=== PATIENT | male | born 1945 | race Caucasian/White ===

== ENCOUNTER 2021-08-21 11:57 | Observation (INO) | payer MEDICARE, SELFPAY ==
--- NOTE | ~2021-08-21 | XR_ITS ---
EXAM: XR abdomen/kub 1V DATE: 08/21/2021 16:28 HISTORY: left UVJ stone. nausea,vomiting, LLQ pain. hx hernia repair . COMPARISON: CT abdomen pelvis, same date. FINDINGS: Clear lung bases. Normal bowel gas pattern. No organomegaly. Moderate-severe left hydronep hrosis, with delayed contrast excretion. 6 x 10 mm left UVJ stone. Multiple pelvic phleboliths. Bilat eral hernia repair. Degenerative change in lumbar spine. IMPRESSION: Left UVJ stone causing moderate-severe obstructive uropathy. Reviewed, dictated and finalized at location K.
--- NOTE | ~2021-08-21 | CT_ITS ---
EXAMINATION: CT abdomen pelvis w con DATE: 08/21/2021 14:28 INDICATION: abd pain TECHNIQUE: Computed tomography (CT) of the abdomen and pelvis was performed with 100 mL Omnipaque-300 intravenous contrast. Automated exposure control and iterative reconstruction technique were employe d. The dose-length product was 579.90 mGy-cm. COMPARISON: None. FINDINGS: Lower thorax: Bibasilar atelectasis/scar and senescent change. Coronary artery calcification. Liver: Normal. Biliary/Gallbladder: Gallbladder is absent. No bile duct dilation. Pancreas: No mass or duct dilation. Spleen: Normal. Adrenals:No mass. Kidneys: Delayed left nephrogram. Moderate-severe left hydronephrosis and perinephric stranding. The right kidney is normal. GI tract: No small or large bowel dilation. Appendix not visualized. Diverticulosis without diverticu litis. Mesentery/Peritoneum: No ascites, mass, or free air. Retroperitoneum: No mass. Atherosclerotic abdominal aortic and/or arterial calcifications. Pelvis: Bladder wall thickening likely secondary to outlet obstruction from marked prostatomegaly. Sm all ureterocele. 9 x 12 mm stone lodged in the left UVJ. Soft Tissues: Prior bilateral hernia repair. Small bilateral fat-containing inguinal hernias. Bones: No acute osseous finding. IMPRESSION: 9 x 12 mm left UVJ stone causing moderate-severe left obstructive uropathy. Reviewed, dictated and finalized at location K.
--- NOTE | ~2021-08-21 | XR_ITS ---
EXAMINATION: XR fluoroscopy no charge DATE: 08/22/2021 13:00 CDT INDICATION: LEFT SIDE RETRO WITH STENT . TECHNIQUE: 4 fluoroscopic images of the abdomen and pelvis were obtained during retrograde pyelograph y with stent placement performed by the surgeon. I was not present in the operating room. Fluoroscopy exposure time was 73 seconds. Cumulative dose was 0.755 mGy2. COMPARISON: X-ray and CT abdomen and pelvis, 08/21/2021. FINDINGS: Redemonstration of the obstructing left UVJ stone. Cannulation of the bladder with attempts to advanc e a guidewire into the ureter. No pyelographic or post stent images were obtained. IMPRESSION: Fluoroscopic documentation of left-sided retrograde pyelography with stent placement. Please refer to the operative note for complete procedural details . Reviewed, dictated and finalized at location K. IMPRESSION: Fluoroscopic documentation of left-sided retrograde pyelography with stent plac emada. Please refer to the operative note for complete procedural details .
[2021-08-21 11:58] VITALS: BP 139/87; PULSE 101; RESP 18; TEMP 36.4; O2SAT 99
[2021-08-21 12:09] LABS: Basophils Percent Auto 0.3 % (0.2-1.2); Eosinophils Absolute Auto 0.1 K/mm3 (0-0.3); Eosinophils Percent Auto 1.1 % (0-4.4); Hematocrit 46.1 % (42.0-52.0); Hemoglobin 15.4 g/dL (14.0-18.0); Immature Granulocyte Absolute 0.05 K/mm3 (0.00-0.031); Immature Granulocyte Percent A 0.5 % (0-0.5); Lymphocytes Absolute Auto 0.88 K/mm3 (0.9-3.2); Lymphocytes Percent Auto 8.6 % (18.3-44.2); Mean Corpuscular HGB Conc 33.4 g/dl (32-36); Mean Corpuscular Hemoglobin 32.2 pg (26-34); Mean Corpuscular Volume 96.4 fl (80-100); Mean Platelet Volume 10.2 fl (7.4-10.4); Monocytes Percent Auto 9.4 % (2.6-8.5); Neutrophils Absolute Auto 8.2 K/mm3 (1.3-6.7); Neutrophils Percent Auto 80.1 % (45.5-73.1); Platelet Count Result 171 k/mm3 (150-375); Red Blood Count 4.78 M/mm3 (4.6-6.20); Red Cell Distribution Width 13.3 % (11.5-14.5); White Blood Count 10.2 K/mm3 (4.5-10.0)
[2021-08-21 12:23] LABS: Alanine Aminotransferase 15 U/L (6-50); Albumin Level 4.3 g/dL (3.5-5.1); Alkaline Phosphatase 57 U/L (38-126); Anion Gap 6 mmol/L (8-16); Aspartate Amino Transferase 21 U/L (17-59); Bilirubin,Total 3.5 mg/dL (0.2-1.3); Blood Urea Nitrogen 24 mg/dL (9-20); Calcium 8.9 mg/dL (8.4-10.2); Carbon Dioxide 26 mmol/L (22-30); Chloride 99 mmol/L (98-107); Estimated CRCL calculation 37 ml/min; Estimated Glomerular Filt Rate 46; Glucose 101 mg/dL (65-110); Lipase 46 U/L (23-300); Potassium 4.2 mmol/L (3.4-5.0); Sodium 131 mmol/L (137-145)
[2021-08-21 12:41] LABS: Appearance Urine Clear (Clear); Bilirubin Urine 1+ (Negative); Blood Urine Negative (Negative); Glucose Urine UA Negative (Negative); Ketones Urine 2+ mg/dL (Negative); Leukocyte Esterase Ur Negative LEU/UL (Negative); Nitrate Urine Negative (Negative); Protein Urine 1+ mg/dL (Negative); Specific Grav Ur 1.025 (1.001-1.035); pH Urine 6.5 (5.0-9.0)
[2021-08-21 12:53] LABS: Add Urine Microscopic? YES; Color Urine Dark Yellow (Yellow)
[2021-08-21 13:13] LABS: Mucus Urine Rare /lpf; RBC Urine 0-2 /hpf (0-2); Squamous Epithelial Cell Urine Rare /hpf (Few); WBC Urine 0-3 /hpf
[2021-08-21 13:28] VITALS: BP 150/98; PULSE 94; RESP 18; O2SAT 100
[2021-08-21] MEDS: SODIUM CHLORIDE 0.9% IV 1,000 ML 999 ML IV CONT (13:54)
[2021-08-21] MEDS: ONDANSETRON INJ 4 MG/2 ML VIAL IV PUSH (13:55)
--- NOTE | 2021-08-21 15:02 | ED.ABDPAIN ---
HPI - Abdominal Pain General Chief Complaint: Abdominal Pain <BETI Sanders Last Filed: 08/21/21 16:32> Stated Complaint: LLQ PAIN <BETI Sanders Last Filed: 08/21/21 16:32> Time Seen by Provider: 08/21/21 13:35 <BETI Sanders Last Filed: 08/21/21 16:32> Source: patient <BETI Sanders Last Filed: 08/21/21 16:32> Mode of arrival: ambulatory <BETI Sanders Last Filed: 08/21/21 16:32> Limitations: no limitations <BETI Sanders Last Filed: 08/21/21 16:32> History of Present Illness HPI narrative: This is a 76-year-old male that presents emergency department for left lower quadrant abdominal pain. Ongoing over the last couple of days. Associated with nausea and vomiting. Denies fever, dysuria, hematuria. <BETI Sanders Last Filed: 08/21/21 16:32> Related Data Home Medications: Home Medications Medication Instructions Recorded Confirmed cholecalciferol (vitamin D3) 50 50 mcg PO DAILY 07/18/21 07/18/21 mcg (2,000 unit) tablet meloxicam 7.5 mg tablet 7.5 mg PO DAILY 07/18/21 07/18/21 omeprazole 20 mg capsule,delayed 20 mg PO DAILY 07/18/21 07/18/21 release prednisone 10 mg tablet 10 mg PO DAILY PRN 07/18/21 07/18/21 tramadol 50 mg tablet 50 mg PO Q6H PRN 07/18/21 07/18/21 <BETI Sanders Last Filed: 08/21/21 16:32> Allergies/Adverse Reactions: Allergies Allergy/AdvReac Type Severity Reaction Status Date / Time Penicillins Allergy Mild Rash Verified 08/21/21 13:33 Hnokssk-FAS-VnT Reductase AdvReac Severe Muscle Pain Verified 08/21/21 13:33 Inhibitor hydroxychloroquine AdvReac Mild Diarrhea Verified 08/21/21 13:33 <BETI Sanders Last Filed: 08/21/21 16:32> Review of Systems Review of Systems: CONSTITUTIONAL: Denies fever GASTROINTESTINAL: Reports abdominal pain, nausea, vomiting GENITOURINARY: Denies dysuria or hematuria. <Ondina Johnston PA-C - Last Filed: 08/21/21 16:32> All systems reviewed & are unremarkable except as noted in HPI and below <Ondina Johnston PA-C - Last Filed: 08/21/21 16:32> PMFSH Past Medical History Medical History: Medical History (Updated 08/21/21 @ 16:32 by Ondina Johnston PA-C) Abdominal hernia Arthritis Elevated PSA Osteopenia <Ondina Johnston PA-C - Last Filed: 08/21/21 16:32> Surgical History Surgical History: Surgical History History of cholecystectomy History of hand surgery History of hernia repair <Ondina Johnston PA-C - Last Filed: 08/21/21 16:32> Family History Family History: Family History Other Diabetes mellitus Hypertension <Ondina Johnston PA-C - Last Filed: 08/21/21 16:32> Social History Social History: Social History Smoking status: Never smoker Alcohol intake: never <Ondina Johnston PA-C - Last Filed: 08/21/21 16:32> Exam Narrative: GENERAL: Well-appearing, well-nourished, and in no acute distress. HEAD: Normocephalic, atraumatic. EYES: EOMI. CHEST: Clear to auscultation. No respiratory distress. No wheezes rales or rhonchi HEART: Regular rate and rhythm. No murmur heard. Normal peripheral pulses. ABDOMEN: Soft, nondistended, normal active bowel sounds. Tender to palpation in the left lower quadrant, without guarding. No CVA tenderness EXTREMITIES: Normal range of motion. No edema. SKIN: Warm, dry, no rash. NEURO: No focal deficits. Alert and oriented x3. PSYCH: Normal mood and affect <Ondina Johnston PA-C - Last Filed: 08/21/21 16:32> Course FOOD TRUCK CATERER/PA Physician Supervision For this patient encounter, I reviewed the FOOD TRUCK CATERER or PA documentation, treatment plan, and medical decision making; and I had [id number] time with this patient. <Maria Esther Galeas MD - Last Filed: 08/21/21 16:27> Consult
[2021-08-21] MEDS: MORPHINE SULFATE (*CRX) 4 MG/ML INJ IV PUSH (15:19)
[2021-08-21 15:30] VITALS: BP 153/91; PULSE 90; RESP 18; O2SAT 100
[2021-08-21 17:34] VITALS: BP 112/78; PULSE 90; RESP 18; O2SAT 99
--- NOTE | 2021-08-21 17:56 | PM.IMHP ---
H&P: HPI History of Present Illness Date/Time: 08/21/21 17:20 Chief Complaint: Abdominal pain Narrative: this pleasant 76-year-old male patient Significant past medical history of abdominal hernia, arthritis, elevated PSA and osteopenia presents to the emergency room today with complaints of having left lower quadrant abdominal pain for the past 2 days. He reports that it has worsened, is not radiating but he does report nausea and vomiting with it. He denies any urinary complaints such as burning, urgency, hematuria or frequency. workup was started in the emergency room and was significant for CT of the abdomen pelvis showing a 9 mm x 12 mm urinary stone at the left UVJ causing moderate to severe left obstructive uropathy. Creatinine is also noted to be 1.5, and there is nothing to compare that to from previous studies. Bilirubin is 3.5, the patient is asymptomatic of any right upper quadrant pain. Urology has been notified and he is agreeable to consulting on patient and performing ureteroscopy tomorrow. At the time of my exam he has no complaints and states the Dilaudid is helping his pain. No N/V/D, he wants to eat. He has no CP, or dyspnea nor has he ever with this presentation. He is being admitted to hospitalist service at this time for medical management of pain overnight pending scope tomorrow. Review of Systems Review of Systems: All systems reviewed & are unremarkable except as noted in HPI and below PMFSH Past Medical History Medical History Abdominal hernia Arthritis Elevated PSA Osteopenia Surgical History Surgical History History of cholecystectomy History of hand surgery History of hernia repair Family History Family History Other Diabetes mellitus Hypertension Social History Social History Smoking status: Never smoker Alcohol intake: never Meds Home Medications and Allergies Home Medications Medication Instructions Recorded Confirmed Type cholecalciferol (vitamin D3) 50 50 mcg PO DAILY 07/18/21 07/18/21 History mcg (2,000 unit) tablet meloxicam 7.5 mg tablet 7.5 mg PO DAILY 07/18/21 07/18/21 History omeprazole 20 mg capsule,delayed 20 mg PO DAILY 07/18/21 07/18/21 History release prednisone 10 mg tablet 10 mg PO DAILY PRN 07/18/21 07/18/21 History tramadol 50 mg tablet 50 mg PO Q6H PRN 07/18/21 07/18/21 History Allergies Allergy/AdvReac Type Severity Reaction Status Date / Time Penicillins Allergy Mild Rash Verified 08/21/21 13:33 Xpqisvr-YET-RvK Reductase AdvReac Severe Muscle Pain Verified 08/21/21 13:33 Inhibitor hydroxychloroquine AdvReac Mild Diarrhea Verified 08/21/21 13:33 Vital Signs Vital Signs - 24 hr 08/21/21 11:58 08/21/21 13:28 08/21/21 15:30 Temperature 97.6 F Pulse Rate 101 H 94 90 Respiratory Rate 18 18 18 Blood Pressure 139/87 150/98 H 153/91 H Pulse Oximetry 99 100 100 Oxygen Delivery Room Air Room Air 08/21/21 17:34 Temperature Pulse Rate 90 Respiratory Rate 18 Blood Pressure 112/78 Pulse Oximetry 99 Oxygen Delivery Exam Const: General: comfortable and no acute distress HENMT: General nose exam: Normal nares present Mouth: Yes moist mucous membranes Eyes: General: appearance normal, both eyes and all related structures Sclera: sclerae normal Pupils: Equal, round and reactive pupils present EOM: EOMs intact bilaterally Neck: Neck: supple and no JVD Chest: Other: Not tender to palpation Resp: Effort & Inspection: normal respiratory effort Auscultation: clear to auscultation bilaterally Cardio: Rate: regular rate Rhythm: regular rhythm Heart sounds: no gallops, no murmurs and no rubs GI: Inspection: non-distended GI Palp: Yes Soft to palpation and Yes Tende
[2021-08-21 18:12] VITALS: BMI 24.3
--- NOTE | 2021-08-21 18:15 | PC.NURSE ---
This patient, Ghanshyam Ingram, was admitted to Medical Room 349-01. Patient/family oriented to hospital policies and general routines including ID bracelet, bed and alarms, visiting hours, pain management, procedures, bathroom and other care routines, personal items, smoking policy, room service/diet, and visiting hours. Information on how to activate the Rapid Response Team has been discussed. Patient/Family are encouraged to report perceived risks to care and to ask questions if they do not understand what they are told or what they should do.
[2021-08-21 18:26] VITALS: BMI 24.5
[2021-08-21] MEDS: SODIUM CHLORIDE 0.9% IV 1,000 ML 125 ML IV CONT (18:34)
[2021-08-21 22:00] VITALS: BP 131/74; PULSE 80; RESP 18; TEMP 36.6; O2SAT 100
[2021-08-22] VITALS (12 sets, daily range): BP systolic 118–142; BP diastolic 64–88; PULSE 75–89; RESP 12–21; TEMP 36.2–37.3; O2SAT 97–100
[2021-08-22] MEDS: SODIUM CHLORIDE 0.9% IV 1,000 ML 125 ML IV CONT ×3 (03:11→22:51)
--- NOTE | 2021-08-22 10:10 | WPDURCON ---
Assessment and Plan Assessment and plan (1) Elevated serum creatinine: Code(s): R79.89 - Other specified abnormal findings of blood chemistry Status: Acute Assessment and Plan: Continue to watch, likely secondary to retention and will resolve s/p cath placement. (2) Ureterolithiasis: Code(s): N20.1 - Calculus of ureter Status: Acute Assessment and Plan: Keep NPO. Obtain Consent: Cystoscopy, left ureteroscopy with stone extraction, left retrograde pyelogram, left retrograde pyelogram, possible holmium laser. We discussed the procedure in it's entirety and the need to f/u in a week for a stent removal in the office. He agrees to proceed this afternoon with Dr. Moseley. (3) Retention of urine: Code(s): R33.9 - Retention of urine, unspecified Status: Acute Assessment and Plan: Keep tucker in place until discharge, then will plan to perform a voiding trial. (4) BPH (benign prostatic hyperplasia): Code(s): N40.0 - Benign prostatic hyperplasia without lower urinary tract symptoms Status: Acute Assessment and Plan: Failed Flomax d/t side effects. Will start Finasteride. Urology Consult Note HPI Date Seen: 08/22/21 Time Seen: 10:10 Requesting Physician: Yobani Grijalva MD Primary Care Provider: Behzad Aguilera MD Consult Narrative Reason for consult: Ureteral Stone Narrative: Ghanshyam Ingram is a 76 year old male who presented to the ER yesterday for worsening LLQ pain that began on Sunday, 3 days ago. He state it was tolerable for two days and he thought he was constipated or had a bowel obstruction so he did an enema, but found no relief of the pain. He states the pain worsened yesterday and he started to develop nausea and vomiting. His WBC is 10.2, creatinine is slightly elevated at 1.50. UA is negative for infection and he is afebrile. He had a CT scan yesterday showing a 9x12mm left UVJ stone with moderate to severe hydronephrosis. The stone is visible on KUB. After admission he also states he developed difficulty with urination and had the urge to urinate every 15 minutes. They placed a tucker catheter, however the PVR is unknown. He states he has never had kidney stones before but has had trouble with BPH over the past few years and tried Flomax, but stopped it d/t side effects. He is not on any medication for BPH at this time. Review of Systems Cardiovascular: Cardiovascular: Denies chest pain Respiratory: Respiratory: Reports no additional respiratory complaints Gastrointestinal: Gastrointestinal: Reports abdominal pain, Reports nausea and Denies vomiting Genitourinary: Genitourinary: Denies hematuria, Denies dysuria, Denies flank pain, Reports urinary frequency, Reports urinary hesitancy and Reports urinary urgency PMFSH Past Medical History Medical History Abdominal hernia Arthritis Elevated PSA Osteopenia Surgical History Surgical History History of cholecystectomy History of hand surgery History of hernia repair Family History Family History Mother Hypertension Congestive heart failure Mother No problems noted. Father Diabetes mellitus Social History Social History Smoking status: Never smoker Second hand tobacco smoke exposure: No Alcohol intake: never Substance use: never Substance use type: does not use Spiritual care concerns: No Meds Home Medications and Allergies Home Medications Medication Instructions Recorded Confirmed Type cholecalciferol (vitamin D3) 50 50 mcg PO DAILY 07/18/21 08/21/21 History mcg (2,000 unit) tablet meloxicam 7.5 mg tablet 7.5 mg PO DAILY 07/18/21 08/21/21 History omeprazole 20 mg capsule,delayed 20 mg PO DAILY 07/18/21 08/21/21
--- NOTE | 2021-08-22 11:25 | PM.IMPN ---
Progress Note: A&P Assessment and Plan (1) Ureterolithiasis: Code(s): N20.1 - Calculus of ureter Status: Acute Assessment and Plan: - Urology has been consulted. - NPO after MN - IVF of NS at 125 ml/hr - Strain all urine - IV Dilaudid prn and IV Ondansetron prn -no IV antibiotics indicated currently. -await plan from Neurology. (2) Hyperbilirubinemia: Code(s): E80.6 - Other disorders of bilirubin metabolism Status: Acute Assessment and Plan: - Etiology uncertain. Pt. asymptomatic. - Recheck labs in AM. - Consider RUQ US if worsening. - Continue IVF (3) Elevated serum creatinine: Code(s): R79.89 - Other specified abnormal findings of blood chemistry Status: Acute Assessment and Plan: - Hold Prednisone and NSAID - Suspect from current Ureterolithiasis. - Continue IVF - Monitor labs and VS. Subjective Date/time seen: 08/22/21 11:25 Abdominal pain noted. no nausea vomiting. Pain is better controlled Exam Const: General: comfortable and no acute distress HENMT: General nose exam: Normal nares present Mouth: Yes moist mucous membranes Eyes: General: appearance normal, both eyes and all related structures Sclera: sclerae normal Pupils: Equal, round and reactive pupils present EOM: EOMs intact bilaterally Neck: Neck: supple and no JVD Chest: Other: Not tender to palpation Resp: Effort & Inspection: normal respiratory effort Auscultation: clear to auscultation bilaterally Cardio: Rate: regular rate Rhythm: regular rhythm Heart sounds: no gallops, no murmurs and no rubs GI: Inspection: non-distended Auscultation: normal bowel sounds Skin: General skin exam: normal color and no rashes or lesions noted Lesions: no lesions noted Rashes: no rashes noted Wounds: no wounds Neuro: General: gait normal Cranial nerves: Yes Equal, round and reactive pupils present Speech: normal speech Motor exam (neuro): 5/5 motor strength present throughout and Normal motor muscle tone present throughout Sensory Exam: normal sensation Extrem: General: normal to inspection, no edema and no pedal edema Psych: Mental Status: mental status grossly normal Affect: normal affect Objective Data Vital Signs Vital Signs: Vital Signs - 24 hr 08/21/21 11:58 08/21/21 13:28 08/21/21 15:30 Temperature 97.6 F Pulse Rate 101 H 94 90 Respiratory Rate 18 18 18 Blood Pressure 139/87 150/98 H 153/91 H Pulse Oximetry 99 100 100 Oxygen Delivery Room Air Room Air 08/21/21 17:34 08/21/21 20:00 08/21/21 22:00 Temperature 97.9 F Pulse Rate 90 80 Respiratory Rate 18 18 Blood Pressure 112/78 131/74 Pulse Oximetry 99 100 Oxygen Delivery Room Air 08/22/21 06:00 08/22/21 07:39 Temperature 99.2 F 97.9 F Pulse Rate 81 87 Respiratory Rate 16 18 Blood Pressure 131/70 118/64 Pulse Oximetry 99 98 Oxygen Delivery Intake/Output Intake/Output: Intake & Output 08/19/21 08/20/21 08/21/21 08/22/21 23:59 23:59 23:59 23:59 Intake Total 1100 1000 Output Total 200 1700 Balance 900 -700 Meds/Results Medications: Active Medications Generic Name Dose Route Start Last Admin Trade Name Freq PRN Reason Stop Dose Admin Finasteride 5 mg 08/22/21 11:00 Finasteride 5 Mg Tablet PO QAM BHARTI Hydromorphone HCl 1 mg 08/21/21 18:06 Hydromorphone Hcl Inj (*Crx) 1 Mg/Ml Syr IV PUSH Q3H PRN Pain Rated 7-10 Sodium Chloride 1,000 mls @ 125 mls/hr 08/21/21 18:10 08/22/21 03:11 Normal Saline Iv IV CONT 125 mls/hr .Q8H BHARTI Administration Lactated Ringer's 1,000 mls @ 30 mls/hr 08/22/21 07:40 Lr - Lactated Ringers Iv IV CONT .Q24H BHARTI Ondansetron HCl 4 mg 08/21/21 18:06 Ondansetron Inj 4 Mg/2 Ml Vial IV PUSH Q4H PRN Nausea And Vomiting Pantoprazole Sodium 40 mg 08/22/21 09:00 08/22/21 08:31 Pantoprazole 40 Mg Tablet PO Not Given QAM BHARTI Vitamin D 2,000 units 08/22/21 09:00
[2021-08-22] MEDS: LACTATED RINGERS 1,000 ML 30 ML IV CONT (11:35)
--- NOTE | 2021-08-22 11:43 | PC.NURSE ---
1120: pt off unit, down to preop
--- NOTE | 2021-08-22 12:14 | WPDANESEPPF ---
Anes - Initial Pre Proc Eval Procedure: Operation Date: 08/22/21 12:45 Proposed Procedures p Cystoscopy,Left Ureteroscopy,Left Retrograde Pyelogram,Stone Extraction,Possible Holmium Laser,Possible Stent Placement - Ricky Moseley MD Date/Time: 08/22/21 12:14 Surgeon: Yobani Grijalva MD Pre Op Diagnosis: Ureterolithiasis Patient Data Age: 76 Gender: M Height: 1.73 m Weight: 73.3 kg Last Vital Signs Temp 37.1 C 08/22/21 11:25 Pulse 81 08/22/21 11:25 Resp 16 08/22/21 11:25 BP 134/77 08/22/21 11:25 Pulse Ox 100 08/22/21 11:25 O2 Del Method Room Air 08/22/21 11:25 Allergies Allergy/AdvReac Type Severity Reaction Status Date / Time Penicillins Allergy Mild Rash Verified 08/21/21 13:33 Duifqct-NAA-WdX Reductase AdvReac Severe Muscle Pain Verified 08/21/21 13:33 Inhibitor hydroxychloroquine AdvReac Mild Diarrhea Verified 08/21/21 13:33 Home Medications Medication Instructions Recorded Confirmed Type cholecalciferol (vitamin D3) 50 50 mcg PO DAILY 07/18/21 08/21/21 History mcg (2,000 unit) tablet meloxicam 7.5 mg tablet 7.5 mg PO DAILY 07/18/21 08/21/21 History omeprazole 20 mg capsule,delayed 20 mg PO DAILY 07/18/21 08/21/21 History release prednisone 10 mg tablet 10 mg PO DAILY 07/18/21 08/21/21 History tramadol 50 mg tablet 50 mg PO Q6H PRN pain 07/18/21 08/21/21 History ibandronate 150 mg tablet 150 mg PO ONCE 08/21/21 08/21/21 History Laboratory Tests 08/21/21 08/21/21 12:04 12:33 Sodium 131 mmol/L L mmol/L (137-145) Potassium 4.2 mmol/L mmol/L (3.4-5.0) Chloride 99 mmol/L mmol/L (98-107) Carbon Dioxide 26 mmol/L mmol/L (22-30) Anion Gap 6 mmol/L L mmol/L (8-16) BUN 24 mg/dL H mg/dL (9-20) Creatinine 1.50 mg/dL H mg/dL (0.7-1.3) Estim Creat Clear Calc 37 ml/min ml/min Estimated GFR 46 L (59 - ) Glucose 101 mg/dL mg/dL (65-110) Calcium 8.9 mg/dL mg/dL (8.4-10.2) Total Bilirubin 3.5 mg/dL H mg/dL (0.2-1.3) AST 21 U/L U/L (17-59) ALT 15 U/L U/L (6-50) Alkaline Phosphatase 57 U/L U/L (38-126) Total Protein 7.0 g/dL g/dL (6.3-8.2) Albumin 4.3 g/dL g/dL (3.5-5.1) Lipase 46 U/L U/L (23-300) Urine Color Dark yellow (Yellow) Urine Appearance Clear (Clear) Urine pH 6.5 (5.0-9.0) Ur Specific [place] 1.025 (1.001-1.035) Urine Protein 1+ mg/dL H mg/dL (Negative) Urine Glucose (UA) Negative mg/dL mg/dL (Negative) Urine Ketones 2+ mg/dL H mg/dL (Negative) Ur Blood (Man) Negative (Negative) Urine Nitrate Negative (Negative) Urine Bilirubin 1+ H (Negative) Urine Urobilinogen 1.0 mg/dL mg/dL (<2.0) Leukocyte Esterase Rfl Negative LESVIA/UL LESVIA/UL (Negative) Urine RBC 0-2 /hpf /hpf (0-2) Urine WBC 0-3 /hpf /hpf Ur Squamous Epith Cells Rare /hpf /hpf (Few) Urine Mucus Rare /lpf /lpf Patient hx anesthesia problems: none Family hx anesthesia problems: none Results Review: All pre-operative results and documents have been reviewed as part of the pre-operative evaluation. [facility] Past Medical History Medical History Abdominal hernia Arthritis Elevated PSA Osteopenia Surgical History Surgical History History of cholecystectomy History of hand surgery History of hernia repair Family History Family History Mother Hypertension Congestive heart failure Mother No problems noted. Father Diabetes mellitus Social History Social History Smoking status: Never smoker Second hand tobacco smoke exposure: No Alcohol intake: nev
--- NOTE | 2021-08-22 12:19 | WPDHPUPDATE1 ---
History and Physical Update Update Date/Time: 08/22/21 12:19 History and Physical has been reviewed, including an updated exam of the patient. There are NO changes in the patient's condition. Risks, benefits, and alternatives have been discussed and questions answered. Patient agrees to proceed with procedure.
[2021-08-22] MEDS: ceFAZolin 2 GM/D5W 50 ML 2 GM/50 ML BAG IVPB (12:42)
[2021-08-22] MEDS: LIDOCAINE HCL 2% GEL UROJET 10 ML PKG MUCOUS MEM (12:53)
--- NOTE | 2021-08-22 13:43 | W.PM.PROC2 ---
Procedure Note - Detailed Date of Procedure 08/22/21 Pre-op Diagnosis Large left distal ureteral stone Post-op Diagnosis Same Procedure Performed Cystoscopy Surgeon Ricky Moseley MD Anesthesia General Indications This is a gentle with a 12 mm distal ureteral stone he is here today for intervention. He understands risks of bleeding, infection, inability to remove the stone, need for ancillary procedures, damage to the urinary tract. He agrees to proceed Findings Extremely large hypervascular prostate. Significant trabeculations and cellules in the bladder Description of Procedure He has correctly identified. Informed consent obtained. From the operating room. He was placed in a dorsal lithotomy position. He was prepped and draped in a sterile fashion. Given appropriate perioperative antibiotics. Time-out performed. I removed the Briceno catheter. On cystoscopy he had an extremely large prostate with extremely large lateral lobes. I entered the bladder. It was very difficult to examine the entire bladder due to the size of the prostate. The prostate was also quite hypervascular and bled with minimal manipulation from the cystoscope. I attempted to locate the left ureteral orifice. I tried with both the flexible and the rigid cystoscope. Myoview was definitely obstructed due to the large prostate. He also had severe trabeculations with cellule formation. After a prolonged period of time of greater than 30 minutes I was finally able to locate what I thought was the left ureteral orifice. I placed a angled Glidewire into the left ureteral orifice. It appeared to go up to the level of the stone. I was unable to get the Glidewire to go past the ureteral stone. Visualization was quite difficult due to bleeding from his hypervascular prostate. At this point I was making no progress. It was again difficult to keep site of the left ureteral orifice. I was also unable to get a Glidewire to traverse the stone. At this point I abandoned the procedure. A Briceno catheter was placed. 20 cc was but the Briceno balloon. He was placed on CBI. I will discuss with my partners other approaches. One option would be lithotripsy of the stone and hope that would pass. Another option would be a percutaneous procedure. Estimated Blood Loss 10 Urine Output 1,500 Complications No immediate complications Condition Stable Disposition PACU
[2021-08-22] MEDS: HYDROmorphone HCL INJ (*CRX) 1 MG/ML SYR IV PUSH (14:52)
[2021-08-22] MEDS: ONDANSETRON INJ 4 MG/2 ML VIAL IV PUSH (15:56)
[2021-08-23 05:34] VITALS: BP 123/64; PULSE 79; RESP 16; TEMP 36.6; O2SAT 98
[2021-08-23] MEDS: SODIUM CHLORIDE 0.9% IV 1,000 ML 125 ML IV CONT (06:23)
--- NOTE | 2021-08-23 06:37 | WPDUROPN2 ---
Progress Note: A&P Assessment and Plan (1) BPH (benign prostatic hyperplasia): Code(s): N40.0 - Benign prostatic hyperplasia without lower urinary tract symptoms Status: Acute (2) Ureterolithiasis: Code(s): N20.1 - Calculus of ureter Status: Acute Assessment and Plan: Unsuccessful attempt at ureteroscopy with stone extraction yesterday due to markedly enlarged prostate. Will plan outpatient ESWL as management for left ureteral stone. If develops painful obstructing fragments will likely need left PCN tube as placing a stent was not do-able. Urine has cleared overnight, will stop CBI and plan voiding trial later today if urine remains clear. Subjective Subjective Date/Time Seen: 08/23/21 06:37 No complaints Exam Const: General: no acute distress Resp: Effort & Inspection: normal respiratory effort GI: Inspection: non-distended GI Palp: No abdominal tenderness and No Guarding due to palpation present (GI) Auscultation: normal bowel sounds Urinary Catheter: Urinary Catheter: patent and draining and urine clear Objective Data Vital Signs Vital Signs: Vital Signs - 24 hr 08/22/21 07:39 08/22/21 08:00 08/22/21 11:25 Temperature 97.9 F 98.7 F Pulse Rate 87 81 Respiratory Rate 18 16 Blood Pressure 118/64 134/77 Pulse Oximetry 98 100 Oxygen Delivery Room Air Room Air Oxygen Flow Rate 08/22/21 13:45 08/22/21 13:55 08/22/21 14:10 Temperature 98.0 F Pulse Rate 85 76 76 Respiratory Rate 21 H 15 12 Blood Pressure 121/82 123/78 130/85 Pulse Oximetry 100 100 98 Oxygen Delivery Simple Face Mask Room Air Room Air Oxygen Flow Rate 10 08/22/21 14:25 08/22/21 15:00 08/22/21 15:15 Temperature 98.5 F 98.5 F Pulse Rate 75 81 83 Respiratory Rate 17 18 18 Blood Pressure 130/88 142/85 H 131/79 Pulse Oximetry 100 98 97 Oxygen Delivery Room Air Oxygen Flow Rate 08/22/21 15:45 08/22/21 16:45 08/22/21 21:01 Temperature 98.3 F 98.3 F 97.2 F L Pulse Rate 89 87 85 Respiratory Rate 20 18 16 Blood Pressure 131/75 121/74 127/77 Pulse Oximetry 98 98 99 Oxygen Delivery Oxygen Flow Rate 08/23/21 05:34 Temperature 97.9 F Pulse Rate 79 Respiratory Rate 16 Blood Pressure 123/64 Pulse Oximetry 98 Oxygen Delivery Oxygen Flow Rate Intake/Output Intake/Output: Intake & Output 08/20/21 08/21/21 08/22/21 08/23/21 23:59 23:59 23:59 23:59 Intake Total 1100 3410 1150 Output Total 200 8000 800 Balance 900 -4590 350 Meds/Results Medications: Active Medications Generic Name Dose Route Start Last Admin Trade Name Freq PRN Reason Stop Dose Admin Ciprofloxacin 500 mg 08/23/21 09:00 Ciprofloxacin 500 Mg Tab PO DAILY BHARTI Finasteride 5 mg 08/22/21 11:00 08/22/21 14:58 Finasteride 5 Mg Tablet PO Not Given QAM BHARTI Hydromorphone HCl 1 mg 08/21/21 18:06 08/22/21 14:52 Hydromorphone Hcl Inj (*Crx) 1 Mg/Ml Syr IV PUSH 1 mg Q3H PRN Administration Pain Rated 7-10 Sodium Chloride 1,000 mls @ 125 mls/hr 08/21/21 18:10 08/23/21 06:23 Normal Saline Iv IV CONT 125 mls/hr .Q8H BHARTI Administration Lactated Ringer's 1,000 mls @ 30 mls/hr 08/22/21 12:15 Lr - Lactated Ringers Iv IV CONT .Q24H BHARTI Ondansetron HCl 4 mg 08/21/21 18:06 08/22/21 15:56 Ondansetron Inj 4 Mg/2 Ml Vial IV PUSH 4 mg Q4H PRN Administration Nausea And Vomiting Ondansetron HCl 4 mg 08/22/21 12:15 Ondansetron Inj 4 Mg/2 Ml Vial IV PUSH ONCE PRN Nausea Pantoprazole Sodium 40 mg 08/22/21 09:00 08/22/21 08:31 Pantoprazole 40 Mg Tablet PO Not Given QAM [facility] Radiology Results: ITS Impressions Abdomen/Pelvis CT 08/21/21 15:40 IMPRESSION: 9 x 12 mm left UVJ stone causing moderate-severe left obstructive uropathy. Abdomen X-Ray 08/21/21 16:38 IMPRESSION: Left UVJ stone causing moderate-severe obstructive uropathy. Fluoroscopy 08/22/21 14:09 IMPRESSION: Fluoro
[2021-08-23 07:53] LABS: Anion Gap 5 mmol/L (8-16); Blood Urea Nitrogen 14 mg/dL (9-20); Calcium 7.8 mg/dL (8.4-10.2); Carbon Dioxide 22 mmol/L (22-30); Chloride 109 mmol/L (98-107); Estimated CRCL calculation 55 ml/min; Estimated Glomerular Filt Rate > 60; Glucose 103 mg/dL (65-110); Potassium 4.3 mmol/L (3.4-5.0); Sodium 136 mmol/L (137-145)
--- NOTE | 2021-08-23 09:04 | PM.DS ---
DS: Admitting Diagnosis Discharge Date 08/23/21 Admitting Diagnosis Ureteral lithiasis DS: Discharge Diagnosis Discharge Diagnosis (1) Ureterolithiasis: Code(s): N20.1 - Calculus of ureter Status: Acute Assessment and Plan: - Urology has been consulted. -unsuccessful attempt to place stent. Secondary to BPH. Will need to follow up with Urology as an outpatient for lithotripsy. Finasteride Yoel started on discharge. (2) Hyperbilirubinemia: Code(s): E80.6 - Other disorders of bilirubin metabolism Status: Acute Assessment and Plan: Asymptomatic. Monitor (3) Elevated serum creatinine: Code(s): R79.89 - Other specified abnormal findings of blood chemistry Status: Acute Assessment and Plan: Complicated by a ureteral stone. See plan above DS: Summary Hospital Course Hospital Course: See discharge planning diagnoses Time Spent with Patient Time attestation: Total time spent providing and/or coordinating discharge services: Exam Const: General: comfortable and no acute distress HENMT: General nose exam: Normal nares present Mouth: Yes moist mucous membranes Eyes: General: appearance normal, both eyes and all related structures Sclera: sclerae normal Pupils: Equal, round and reactive pupils present EOM: EOMs intact bilaterally Neck: Neck: supple and no JVD Chest: Other: Not tender to palpation Resp: Effort & Inspection: normal respiratory effort Auscultation: clear to auscultation bilaterally Cardio: Rate: regular rate Rhythm: regular rhythm Heart sounds: no gallops, no murmurs and no rubs GI: Inspection: non-distended Auscultation: normal bowel sounds Skin: General skin exam: normal color and no rashes or lesions noted Lesions: no lesions noted Rashes: no rashes noted Wounds: no wounds Neuro: General: gait normal Cranial nerves: Yes Equal, round and reactive pupils present Speech: normal speech Motor exam (neuro): 5/5 motor strength present throughout and Normal motor muscle tone present throughout Sensory Exam: normal sensation Extrem: General: normal to inspection, no edema and no pedal edema Psych: Mental Status: mental status grossly normal Affect: normal affect DS: Data Data Completed and Pending Labs on day of discharge: Labs from last 24 hours 08/23/21 07:34 Sodium 136 L Potassium 4.3 Chloride 109 H Carbon Dioxide 22 Anion Gap 5 L BUN 14 D Creatinine 1.00 Estim Creat Clear Calc 55 Estimated GFR > 60 Glucose 103 Calcium 7.8 L Discharge Plan Discharge Attending physician on discharge: Yobani Grijalva Consulting providers: Ondina Johnston Discharging Clinician: Yobani Grijalva Patient Disposition: Home, Self-Care Activity: no preference Diet: as tolerated Patient Instructions: Antibiotic Form Stand Alone Forms: General Discharge Information Follow-up/Referrals: Reid Onofre MD [Physician] - Behzad Aguilera MD [Primary Care Provider] - Discharge Medications: New finasteride 5 mg tablet 5 mg PO DAILY Qty: 30 0RF Continued meloxicam 7.5 mg tablet 7.5 mg PO DAILY omeprazole 20 mg capsule,delayed release(DR/EC) 20 mg PO DAILY cholecalciferol (vitamin D3) 50 mcg (2,000 unit) tablet 50 mcg PO DAILY tramadol 50 mg tablet 50 mg PO Q6H PRN (Reason: pain) prednisone 10 mg tablet 10 mg PO DAILY ibandronate 150 mg Tablet 150 mg PO ONCE Rx Instructions: take once a month Date of admission: 08/21/21 16:26 Primary Care Provider: Behzad Aguilera Admitting Provider: Yobani Grijalva Attending physician on admission: Yobani Grijalva Condition: Stable Quality VTE Prophylaxis VTE prophylaxis: mechanical ordered
[2021-08-23] MEDS: FINASTERIDE 5 MG TABLET PO (09:44)
[2021-08-23] MEDS: CIPROFLOXACIN 500 MG TAB PO (09:44)
[2021-08-23] MEDS: PANTOPRAZOLE 40 MG TABLET PO (09:44)
[2021-08-23 11:42] LABS: INR 1.1; Partial Thromboplastin Time 28.2 SECONDS (22.3-36.8); Prothrombin Time 14.2 Seconds (11.1-14.7)
[2021-08-23 14:00] VITALS: BP 147/79; PULSE 85; RESP 20; TEMP 37; O2SAT 100
--- NOTE | 2021-08-23 17:27 | PC.NURSE ---
pt attempted voiding trial today and unsuccessful. Per Kenia Kline, place coude catheter, discharge today and follow up outpatient for removal. Spoke with hospitalist, Rudi, who is okay with discharging pt today with catheter. RN taught pt on urinary catheter care and is sending pt home with catheter teaching and supplies.
== END 2021-08-23 18:35 | disposition home or self-care (01) ==
LOC: ANHED 16:32 → ANH3MED 17:04
PROVIDERS: Emergency Medicine; Urology; Admitting Provider Chiropractor; Emergency Provider Emergency Medicine; PCP Family Medicine; Visit Provider Chiropractor
PROC: (CPT 52352; principal; 2021-08-22 12:45)
DX: N13.2 Hydronephrosis with renal and ureteral calculous obstruction (principal); E80.6 Other disorders of bilirubin metabolism; R33.9 Retention of urine, unspecified; R79.89 Other specified abnormal findings of blood chemistry; N40.0 Benign prostatic hyperplasia without lower urinary tract symptoms; N32.89 Other specified disorders of bladder; M85.80 Other specified disorders of bone density and structure, unspecified site
CPT/HCPCS: 52000; 36415; 74018; 74177; 80048; 80053; 81001; 83690; 85025; 85610; 85730; 87086; 96361; 96365; 96375; 99199; 99285; A9270; C1769; G0378; J0131; J0690; J1100; J1170; J2270; J2405; J2704; J7030; J7120; Q9966; Q9967

== ENCOUNTER 2021-08-26 00:41 | Day surgery (SDC) | payer MEDICARE, SELFPAY ==
[2021-08-24 09:21] VITALS: BMI 24.3
--- NOTE | 2021-08-24 09:29 | PC.NURSE ---
Report to the Outpatient Waiting Room, entrance under the green pavilion located off [facility], at time ___0600____ on date __08/26/21 . OR Time: ___729 . - You and your visitor will be asked a series of questions to screen for COVID 19 for your protection. - Only one visitor is allowed at this time. - The patient visitor is requested to leave or wait in car when not with patient. - A mask is required within the hospital. Patients may have clear liquids (water, carbonated beverages, clear teas, apple juice) until 3 hours prior to surgery (0430 AM) with a maximum of 20 ounces. - No food from midnight until time of surgery - Infants may have breast milk until 4 hours before surgery, infant formula 6 hours prior to surgery. - Children will be allowed to drink immediately following surgery. If applicable, please bring a bottle or sippy cup to assist with drinking. Juice, water, soda, and popsicles are readily available. For infants on formula, please bring formula the day of surgery. Pacifiers are allowed. Take the following medications with a SIP of water the morning of surgery: TRAMADOL IF NEEDED Medications to discontinue per physician DERRICK PER DR. PATEL'S INSTRUCTIONS, PT STOPPED VIT D 08/21/21 Date to take last dose Please no make-up, nail turkish, hairspray, perfume, deodorant, or body powder the day of surgery. No jewelry (including any body piercings) or valuables the day of surgery, leave them at home. Please take a shower or bath the night before, or the morning of, surgery with an antibacterial soap. Wear comfortable, loose fitting clothing. Children are encouraged to wear pajamas. - Jewelry must be removed prior to entering the operating room. Rings and piercings that are not removed may be cut off. - The hospital will not accept responsibility for valuables. - Please leave all valuables, including medications, at home the day of surgery. If you are going home after surgery, a licensed special education bus driver must drive you home. - NO public transportation without another adult. - We recommend that an adult stay with you for 24 hours following discharge. - We also recommend that you do not drive, make important decision, drink alcoholic beverages, or take any drugs that were not prescribed by your health care provider for at least 24 hours after your discharge time. For Pediatric surgeries, we recommend two adults accompany the child home (only one inside the building at this time). Follow any additional instructions given to you from your surgeon. If you or anyone in your household have experienced Covid symptoms in the past week, please notify your surgeon or the nurse liaison at the phone number below for possible testing. Telephone instructions given to ____PT and asked if any additional questions and then verbalized understanding. Patient advised to call surgeon office or pre surgery nurse liaison [phone] if any additional questions.
--- NOTE | 2021-08-25 10:45 | WPDANESEPPF ---
Anes - Initial Pre Proc Eval Procedure: Operation Date: 08/26/21 07:30 Proposed Procedures p Left Ureteral Extracorporeal Shock Wave Lithotripsy - Reid Onofre MD <Presley Villar MD - Last Filed: 08/25/21 10:46> Date/Time: 08/25/21 10:45 <Presley Villar MD - Last Filed: 08/25/21 10:46> Surgeon: Reid Onofre MD <Presley Villar MD - Last Filed: 08/25/21 10:46> Pre Op Diagnosis: left ureteral stone <Presley Villar MD - Last Filed: 08/25/21 10:46> Patient Data Age: 76 Gender: M Height: 1.73 m Weight: 72.72 kg <Presley Villar MD - Last Filed: 08/25/21 10:46> Allergies Allergy/AdvReac Type Severity Reaction Status Date / Time Penicillins Allergy Mild Rash Verified 08/26/21 06:49 Bpyddja-OLV-DpW Reductase AdvReac Severe Muscle Pain Verified 08/26/21 06:49 Inhibitor hydroxychloroquine AdvReac Mild Diarrhea Verified 08/26/21 06:49 <Presley Villar MD - Last Filed: 08/25/21 10:46> Home Medications Medication Instructions Recorded Confirmed Type cholecalciferol (vitamin D3) 50 50 mcg PO DAILY 07/18/21 08/24/21 History mcg (2,000 unit) tablet meloxicam 7.5 mg tablet 7.5 mg PO DAILY 07/18/21 08/26/21 History omeprazole 20 mg capsule,delayed 20 mg PO DAILY 07/18/21 08/26/21 History release prednisone 10 mg tablet 5 mg PO HS 07/18/21 08/26/21 History tramadol 50 mg tablet 50 mg PO Q6H PRN pain 07/18/21 08/26/21 History ibandronate 150 mg tablet 150 mg PO ONCE 08/21/21 08/26/21 History finasteride 5 mg tablet 5 mg PO DAILY #30 tabs 08/23/21 08/26/21 Rx <Presley Villar MD - Last Filed: 08/25/21 10:46> Patient hx anesthesia problems: none <Saravanan Cannon DO - Last Filed: 08/26/21 07:14> Family hx anesthesia problems: none <Saravanan PaulaCaity Cannon DO - Last Filed: 08/26/21 07:14> Results Review: All pre-operative results and documents have been reviewed as part of the pre-operative evaluation. <Presley Villar MD - Last Filed: 08/25/21 10:46> [facility] Past Medical History Medical History: Medical History (Updated 08/25/21 @ 10:45 by Presley Villar MD) Abdominal hernia Arthritis BPH (benign prostatic hyperplasia) Elevated PSA Osteopenia Ureterolithiasis <Presley Villar MD - Last Filed: 08/25/21 10:46> Surgical History Surgical History: Surgical History History of cholecystectomy History of hand surgery History of hernia repair <Presley Villar MD - Last Filed: 08/25/21 10:46> Family History Family History: Family History Mother Hypertension Congestive heart failure Mother No problems noted. Father Diabetes mellitus <Presley Villar MD - Last Filed: 08/25/21 10:46> Social History Social History: Social History Smoking status: Never smoker Second hand tobacco smoke exposure: No Alcohol intake: never Substance use: never Substance use type: does not use Living arrangements: with friend(s) Spiritual care concerns: No <Presley Villar MD - Last Filed: 08/25/21 10:46> Anes - Eval Final PreProcedure Day of Procedure 08/25/21 10:45 <Presley Villar MD - Last Filed: 08/25/21 10:46> Patient weight: normal <Presley Villar MD - Last Filed: 08/25/21 10:46> Heart: regular rate and rhythm <Presley Villar MD - Last Filed: 08/25/21 10:46> Lungs: clear to auscultation <Presley Villar MD - Last Filed: 08/25/21 10:46> Airway: Mallampati scale class II <Presley Villar MD - Last Filed: 08/25/21 10:46> Neurological: alert and oriented <Presley Villar MD - Last Filed: 08/25/21 10:46> Last oral intake: >/= 8 hours <Presley Villar MD - Last Filed: 08/25/21 10:46> ASA classification: II <Presley Villar MD
[2021-08-26] VITALS (8 sets, daily range): BP systolic 114–159; BP diastolic 72–92; PULSE 62–78; RESP 12–20; TEMP 36.3–36.9; O2SAT 99–100
--- NOTE | ~2021-08-26 | XR_ITS ---
EXAMINATION: XR abdomen/kub 1V DATE: 08/26/2021 06:28 INDICATION: Nephrolithiasis for planned lithotripsy TECHNIQUE: A supine view of the abdomen on 2 radiographs was obtained. COMPARISON: 08/21/2021 FINDINGS: Likely Briceno catheter in the bladder. Unchanged 9 mm stone at the left ureterovesicular junction. Cer vical unchanged phleboliths in the pelvis. No other urolithiasis. Cholecystectomy clips in right uppe r quadrant. Multiple clips in the bilateral inguinal regions suggestive of prior inguinal hernia repa irs. No dilated loops of gas-filled bowel to suggest obstruction. Mild linear discoid atelectasis at the bilateral lung bases. Heart size is normal. Mild lumbar dextrocurvature with severe spondylosis. Chronic mild T8 and T12 compression fractures. IMPRESSION: 1. Unchanged 9 mm stone at the left ureterovesicular junction. Reviewed, dictated and finalized at location A.
--- NOTE | 2021-08-26 06:56 | PM.HPGS ---
History of Present Illness History of Present Illness Consent: Risks, benefits, and alternatives have been discussed and questions answered. Patient agrees to proceed with procedure. Chief complaint: left ureteral stone Narrative: Ghanshyam Ingram is a 76 year old male recently underwent inpatient evaluation for slightly painful obstructing 12 mm left distal ureteral calculus. Attempt was made at endoscopic extraction the stone that was unsuccessful because a markedly enlarged prostate with a large intravesical portion that precluded intubation of the left ureteral orifice. After discussion of therapeutic options including placement of a percutaneous nephrostomy tube with antegrade ureteroscopy and insight to ESWL he has elected for the latter. He is aware the risk including, but not limited to, adverse cardiopulmonary events, hematuria, painful stone fragments that may not pass and require placement of a percutaneous nephrostomy tube. Review of Systems Cardiovascular: Cardiovascular: Denies chest pain, Denies lightheadedness, Denies palpitations and Denies dyspnea Respiratory: Respiratory: Denies dyspnea Gastrointestinal: Gastrointestinal: Denies diarrhea, Denies nausea and Denies vomiting Genitourinary: Genitourinary: Denies hematuria and Denies dysuria Endocrine: Endocrine: Denies palpitations [facility] Past Medical History Medical History (Updated 08/25/21 @ 10:45 by Presley Villar MD) Abdominal hernia Arthritis BPH (benign prostatic hyperplasia) Elevated PSA Osteopenia Ureterolithiasis Surgical History Surgical History History of cholecystectomy History of hand surgery History of hernia repair Family History Family History Mother Hypertension Congestive heart failure Mother No problems noted. Father Diabetes mellitus Social History Social History Smoking status: Never smoker Second hand tobacco smoke exposure: No Alcohol intake: never Substance use: never Substance use type: does not use Living arrangements: with friend(s) Spiritual care concerns: No Meds Home Medications and Allergies Home Medications Medication Instructions Recorded Confirmed Type cholecalciferol (vitamin D3) 50 50 mcg PO DAILY 07/18/21 08/24/21 History mcg (2,000 unit) tablet meloxicam 7.5 mg tablet 7.5 mg PO DAILY 07/18/21 08/26/21 History omeprazole 20 mg capsule,delayed 20 mg PO DAILY 07/18/21 08/26/21 History release prednisone 10 mg tablet 5 mg PO HS 07/18/21 08/26/21 History tramadol 50 mg tablet 50 mg PO Q6H PRN pain 07/18/21 08/26/21 History ibandronate 150 mg tablet 150 mg PO ONCE 08/21/21 08/26/21 History finasteride 5 mg tablet 5 mg PO DAILY #30 tabs 08/23/21 08/26/21 Rx Allergies Allergy/AdvReac Type Severity Reaction Status Date / Time Penicillins Allergy Mild Rash Verified 08/26/21 06:49 Rpqzvwb-[id number]-IiP Reductase AdvReac Severe Muscle Pain Verified 08/26/21 06:49 Inhibitor hydroxychloroquine AdvReac Mild Diarrhea Verified 08/26/21 06:49 Exam Const: General: no acute distress Resp: Effort & Inspection: normal respiratory effort GI: Inspection: non-distended GI Palp: No abdominal tenderness and No Guarding due to palpation present (GI) Auscultation: normal bowel sounds Assessment and Plan Assessment and plan (1) Ureterolithiasis: Code(s): N20.1 - Calculus of ureter Status: Acute Assessment and Plan: Left ESWL
[2021-08-26] MEDS: LACTATED RINGERS 1,000 ML 30 ML IV CONT (07:00)
--- NOTE | 2021-08-26 07:00 | WPDHPUPDATE1 ---
History and Physical Update Update Date/Time: 08/26/21 07:00 History and Physical has been reviewed, including an updated exam of the patient. There are NO changes in the patient's condition. Risks, benefits, and alternatives have been discussed and questions answered. Patient agrees to proceed with procedure.
[2021-08-26] MEDS: ceFAZolin 2 GM/D5W 50 ML 2 GM/50 ML BAG IVPB (07:22)
--- NOTE | 2021-08-26 07:48 | W.PM.PROC2 ---
Procedure Note - Detailed Date of Procedure 08/26/21 Pre-op Diagnosis Left ureteral stone Post-op Diagnosis Same Procedure Performed Left ESWL Surgeon Reid Onofre MD Description of Procedure The patient was brought to the operative suite where [] was placed in the supine position on the Dornier lithotripsy table. The focal point of the lithotripter was placed at a 12mm left distal ureteral calculus. A total of 3000 shocks were delivered at a power setting of 6. There appeared to be good fragmentation of the stone. The patient tolerated the procedure well and was taken to the recovery room in good condition. Drains No Packing No Pathology None sent Complications No immediate complications Condition Stable
[2021-08-26] MEDS: fentaNYL CITRATE INJ (*CRX) 100 MCG/2 ML VIAL 25 MCG IV PUSH (08:53)
== END 2021-08-26 10:25 | disposition home or self-care (01) ==
PROVIDERS: PCP Family Medicine; Visit Provider Urology
PROC: (CPT 50590; principal; 2021-08-26 07:30)
DX: N20.1 Calculus of ureter (principal); M85.80 Other specified disorders of bone density and structure, unspecified site; N40.0 Benign prostatic hyperplasia without lower urinary tract symptoms; M19.90 Unspecified osteoarthritis, unspecified site
CPT/HCPCS: 50590; 74018; J0690; J1100; J2405; J2704; J3010; J7120

== ENCOUNTER 2021-09-09 09:24 | Outpatient (CLI) | payer MEDICARE, SELFPAY ==
--- NOTE | ~2021-09-09 | XR_ITS ---
EXAMINATION: XR abdomen/kub 1V DATE: 09/09/2021 09:39 INDICATION: Calculus of left ureter TECHNIQUE: A supine view of the abdomen on 2 radiographs was obtained. COMPARISON: 08/26/2021 FINDINGS: At least 5 smaller stone fragments, the largest measuring approximately 6-7 mm in diameter at the sit e of a prior 10 mm stone at the distal left ureter. Unchanged slightly more lateral round phlebolith. Also unchanged are a few phleboliths in the right hemipelvis. No other urolithiasis. Cholecystectomy clips in right upper quadrant. Surgical clips at the bilateral inguinal regions consistent with like ly prior inguinal hernia repairs. Mild lumbar extra scoliosis with severe spondylosis. Lung bases are clear. Heart size is normal. IMPRESSION: 1. At least 5 stones fragments measuring up to 6-7 mm at the site of a prior 10 mm distal left ureter al stone consistent with interval lithotripsy. Reviewed, dictated and finalized at location A. IMPRESSION: 1. At least 5 stones fragments measuring up to 6-7 mm at the site of a prior 10 mm distal left ureteral stone consistent with interval lithotripsy.
== END 2021-09-09 09:25 | disposition home or self-care (01) ==
LOC: ANHIMG 09:28
PROVIDERS: PCP Family Medicine; Visit Provider Urology
DX: N20.1 Calculus of ureter (principal)
CPT/HCPCS: 74018

== ENCOUNTER 2021-10-06 11:23 | Outpatient (CLI) | payer MEDICARE, SELFPAY ==
--- NOTE | ~2021-10-06 | XR_ITS ---
EXAMINATION: XR abdomen/kub 1V INDICATION: Left ureteral calculus TECHNIQUE: Supine views of the abdomen were obtained on 2 radiographs. COMPARISON: 09/09/2021, 08/26/2021 FINDINGS: Again seen are multiple stable stone fragments in the left pelvis at the site of the previo usly described left distal ureteral stone. There are phleboliths of the pelvis. There is severe lumba r spondylosis. The bowel gas pattern is normal. Surgical clips in the right upper quadrant are likely from prior cholecystectomy. The visualized lung bases are clear. IMPRESSION: 1. Stable stone fragments in the expected location of the distal left ureter. Reviewed, dictated and finalized at location A.
== END 2021-10-06 11:24 | disposition home or self-care (01) ==
PROVIDERS: PCP Family Medicine; Visit Provider Urology
DX: N20.1 Calculus of ureter (principal)
CPT/HCPCS: 74018

== ENCOUNTER 2021-10-21 08:10 | Outpatient (CLI) | payer MEDICARE, SELFPAY ==
[2021-10-21 09:03] LABS: Partial Thromboplastin Time 24.6 SECONDS (22.3-36.8); Prothrombin Time 12.5 Seconds (11.1-14.7)
== END 2021-10-21 08:11 | disposition home or self-care (01) ==
PROVIDERS: PCP Family Medicine; Visit Provider Urology
DX: N20.1 Calculus of ureter (principal); Z01.818 Encounter for other preprocedural examination
CPT/HCPCS: 36415; 85610; 85730; 87086

== ENCOUNTER 2021-10-28 01:36 | Day surgery (SDC) | payer MEDICARE, SELFPAY ==
--- NOTE | 2021-10-20 09:05 | PC.NURSE ---
Report to the Outpatient Waiting Room, entrance under the green pavilion located off [facility], at time _0700 on date __10/28/21 . OR Time: 09 . Time changes happen often and if your time is changed the preop area will call you the afternoon before. - You and your visitor will be asked to self-screen and do not enter if you have any COVID symptoms. - Only one visitor and NO children visitors are allowed at this time. - The patient visitor is requested to leave or wait in car when not with patient due to restrictions. - A mask is required within the hospital. Patients may have clear liquids (water, carbonated beverages, clear teas, apple juice) until 3 hours prior to surgery with a maximum of 20 ounces. - No food from midnight until time of surgery - Infants may have breast milk until 4 hours before surgery, formula 6 hours prior to surgery. - Children will be allowed to drink immediately following surgery. If applicable, please bring a bottle or sippy cup to assist with drinking. Juice, water, soda, and popsicles are readily available. For infants on formula, please bring formula the day of surgery. Pacifiers are allowed. Take the following medications with a SIP of water the morning of surgery: __NONE Medications to discontinue per physician PT STATES MELOXICAM AND ALL VITAMINS AND SUPPLEMENTS 7 DAYS PRE OP PER DR PATEL Date to take last dose__10/20/21 Please no make-up, nail ghanaian, hairspray, perfume, deodorant, or body powder the day of surgery. No jewelry (including any body piercings) or valuables the day of surgery, leave them at home. Please take a shower or bath the night before, or the morning of, surgery with an antibacterial soap. Wear comfortable, loose fitting clothing. Children are encouraged to wear pajamas. - Jewelry must be removed prior to entering the operating room. Rings and piercings that are not removed may be cut off. - The hospital will not accept responsibility for valuables. - Please leave all valuables, including medications, at home the day of surgery. If you are going home after surgery, a licensed horse and wagon driver must drive you home. - NO public transportation without another adult. - We recommend that an adult stay with you for 24 hours following discharge. - We also recommend that you do not drive, make important decision, drink alcoholic beverages, or take any drugs that were not prescribed by your health care provider for at least 24 hours after your discharge time. For Pediatric surgeries, we recommend two adults accompany the child home (only one inside the building at this time). Follow any additional instructions given to you from your surgeon. If you or anyone in your household have experienced Covid symptoms in the past week, please notify your surgeon or the nurse liaison at the phone number below for possible testing. Telephone instructions given to __PATIENT and asked if any additional questions and then verbalized understanding. Patient advised to call surgeon office or pre surgery nurse liaison [phone] if any additional questions.
[2021-10-20 09:14] VITALS: BMI 24.3
--- NOTE | 2021-10-26 07:29 | PM.HPGS ---
History of Present Illness History of Present Illness Consent: Risks, benefits, and alternatives have been discussed and questions answered. Patient agrees to proceed with procedure. Chief complaint: Lt Ureteral Stone Narrative: Ghanshyam Ingram is a 76 year old male who represents a challenging urological problem. He has a markedly enlarged prostate and a large left distal ureteral calculus. Because of the size of his prostate endoscopic approach has not been possible. He is under 1 gone 1 prior ESWL to this left ureteral calculus. Fortunately he is having very little pain or discomfort but has residual fragments that warrant a 2nd treatment. He is aware of the risk, again, including persistent fragments, hematuria, pain in the possibility of needing a percutaneous nephrostomy tube. Review of Systems Cardiovascular: Cardiovascular: Denies chest pain, Denies lightheadedness, Denies palpitations and Denies dyspnea Respiratory: Respiratory: Denies dyspnea Gastrointestinal: Gastrointestinal: Denies diarrhea, Denies nausea and Denies vomiting Genitourinary: Genitourinary: Denies hematuria and Denies dysuria Endocrine: Endocrine: Denies palpitations [facility] Past Medical History Medical History Abdominal hernia Arthritis BMI 23.0-23.9, adult BPH (benign prostatic hyperplasia) Elevated PSA Kidney stones Osteopenia Ureterolithiasis Surgical History Surgical History History of cholecystectomy History of hand surgery History of hernia repair Family History Family History Mother Hypertension Congestive heart failure Mother No problems noted. Father Diabetes mellitus Social History Social History Smoking status: Never smoker Second hand tobacco smoke exposure: No Alcohol intake: never Substance use: never Substance use type: does not use Spiritual care concerns: No Meds Home Medications and Allergies Home Medications Medication Instructions Recorded Confirmed Type cholecalciferol (vitamin D3) 50 50 mcg PO DAILY 07/18/21 10/20/21 History mcg (2,000 unit) tablet meloxicam 7.5 mg tablet 7.5 mg PO DAILY 07/18/21 10/20/21 History omeprazole 20 mg capsule,delayed 20 mg PO DAILY 07/18/21 10/20/21 History release prednisone 10 mg tablet 5 mg PO HS 07/18/21 10/20/21 History tramadol 50 mg tablet 50 mg PO Q6H PRN pain 07/18/21 10/20/21 History ibandronate 150 mg tablet 150 mg PO ONCE 08/21/21 10/20/21 History finasteride 5 mg tablet 5 mg PO DAILY #30 tabs 08/23/21 10/20/21 Rx hydrocodone 5 mg-acetaminophen 325 1 - 2 tablet PO Q6H PRN pain #20 08/26/21 10/20/21 Rx mg tablet tabs multivitamin 1 tablet PO DAILY 10/20/21 10/20/21 History Allergies Allergy/AdvReac Type Severity Reaction Status Date / Time Penicillins Allergy Mild Rash Verified 10/20/21 08:53 [id number] Reductase AdvReac Severe Muscle Pain Verified 10/20/21 08:53 Inhibitor hydroxychloroquine AdvReac Mild Diarrhea Verified 10/20/21 08:53 methotrexate AdvReac Hives Verified 10/20/21 08:53 Exam Const: General: no acute distress Resp: Effort & Inspection: normal respiratory effort GI: Inspection: non-distended GI Palp: No abdominal tenderness and No Guarding due to palpation present (GI) Auscultation: normal bowel sounds Assessment and Plan Assessment and plan (1) Ureterolithiasis: Code(s): N20.1 - Calculus of ureter Status: Acute (2) BPH (benign prostatic hyperplasia): Code(s): N40.0 - Benign prostatic hyperplasia without lower urinary tract symptoms Status: Acute Assessment and Plan: Left ESWL
[2021-10-28] VITALS (8 sets, daily range): BP systolic 125–154; BP diastolic 83–96; PULSE 56–80; RESP 12–21; TEMP 36.2–36.4; O2SAT 98–100
--- NOTE | ~2021-10-28 | XR_ITS ---
EXAMINATION: XR abdomen/kub 1V DATE: 10/28/2021 07:08 INDICATION: Kidney stone. TECHNIQUE: A supine view of the abdomen on 2 radiographs was obtained. COMPARISON: CT abdomen and pelvis 08/21/2021, abdomen radiographs 10/06/2021 FINDINGS: There are no dilated loops of bowel. Surgical clips in the right upper quadrant are likely from cholecystectomy. There are surgical clips from bilateral inguinal hernia repairs. There are phle boliths in the pelvis. There are approximately 4 stones in distal left ureter measuring up to 6 mm. IMPRESSION: 1. Stones in distal left ureter. Reviewed, dictated and finalized at location A.
--- NOTE | 2021-10-28 06:26 | WPDHPUPDATE1 ---
History and Physical Update Update Date/Time: 10/28/21 06:26 History and Physical has been reviewed, including an updated exam of the patient. There are NO changes in the patient's condition. Risks, benefits, and alternatives have been discussed and questions answered. Patient agrees to proceed with procedure.
--- NOTE | 2021-10-28 07:42 | WPDANESEPPF ---
Anes - Initial Pre Proc Eval Procedure: Operation Date: 10/28/21 09:00 Proposed Procedures p Left Ureteral Extracorporeal Shock Wave Lithotripsy - Reid Onofre MD s Possible Cystoscopy, Possible Left Stent Placement - Reid Onofre MD Date/Time: 10/28/21 07:42 Surgeon: Reid Onofre MD Pre Op Diagnosis: Lt Ureteral Stone Patient Data Age: 76 Gender: M Height: 1.73 m Weight: 72.6 kg Allergies Allergy/AdvReac Type Severity Reaction Status Date / Time Penicillins Allergy Mild Rash Verified 10/28/21 07:43 [id number] Reductase AdvReac Severe Muscle Pain Verified 10/28/21 07:43 Inhibitor methotrexate AdvReac Intermediate Hives Verified 10/28/21 07:43 hydroxychloroquine AdvReac Mild Diarrhea Verified 10/28/21 07:43 Home Medications Medication Instructions Recorded Confirmed Type cholecalciferol (vitamin D3) 50 50 mcg PO DAILY 07/18/21 10/20/21 History mcg (2,000 unit) tablet meloxicam 7.5 mg tablet 7.5 mg PO DAILY 07/18/21 10/20/21 History omeprazole 20 mg capsule,delayed 20 mg PO DAILY 07/18/21 10/20/21 History release prednisone 10 mg tablet 5 mg PO HS 07/18/21 10/20/21 History tramadol 50 mg tablet 50 mg PO Q6H PRN pain 07/18/21 10/20/21 History ibandronate 150 mg tablet 150 mg PO ONCE 08/21/21 10/20/21 History finasteride 5 mg tablet 5 mg PO DAILY #30 tabs 08/23/21 10/20/21 Rx hydrocodone 5 mg-acetaminophen 325 1 - 2 tablet PO Q6H PRN pain #20 08/26/21 10/20/21 Rx mg tablet tabs multivitamin 1 tablet PO DAILY 10/20/21 10/20/21 History Patient hx anesthesia problems: none Family hx anesthesia problems: none Results Review: All pre-operative results and documents have been reviewed as part of the pre-operative evaluation. [facility] Past Medical History Medical History Abdominal hernia Arthritis BMI 23.0-23.9, adult BPH (benign prostatic hyperplasia) Elevated PSA Kidney stones Osteopenia Ureterolithiasis Surgical History Surgical History History of cholecystectomy History of hand surgery History of hernia repair Family History Family History Mother Hypertension Congestive heart failure Mother No problems noted. Father Diabetes mellitus Social History Social History Smoking status: Never smoker Second hand tobacco smoke exposure: No Alcohol intake: never Substance use: never Substance use type: does not use Living arrangements: with family Spiritual care concerns: No Anes - Eval Final PreProcedure Day of Procedure 10/28/21 07:42 Patient weight: normal Heart: regular rate and rhythm Lungs: clear to auscultation Airway: Mallampati scale class II Neurological: alert and oriented Last oral intake: >/= 8 hours ASA classification: II Emergent: no Anesthesia type and monitoring: general LMA and standard monitoring Results Review: All pre-operative results and documents have been reviewed as part of the pre-operative evaluation. Informed Consent: The patient's anesthetic plan and its attendant risks and benefits were discussed with the patient/family/POA. Questions were solicited and answers provided to the satisfaction of the patient/family/POA.
[2021-10-28] MEDS: LACTATED RINGERS 1,000 ML 30 ML IV CONT (08:16)
[2021-10-28] MEDS: ceFAZolin 2 GM/D5W 50 ML 2 GM/50 ML BAG IVPB (08:28)
--- NOTE | 2021-10-28 08:40 | W.PM.PROC2 ---
Procedure Note - Detailed Date of Procedure 10/28/21 Pre-op Diagnosis Lt. Ureteral Stone Post-op Diagnosis Same Procedure Performed Left ESWL Surgeon Reid Onofre MD Description of Procedure The patient was brought to the operative suite where he was placed in the supine position on the Dornier lithotripsy table. The focal point of the lithotripter was placed at a collection of fragments in distal left ureter. A total of 3000 shocks were delivered at a power setting of 7. There appeared to be good fragmentation of the stone. The patient tolerated the procedure well and was taken to the recovery room in good condition.
== END 2021-10-28 11:00 | disposition home or self-care (01) ==
PROVIDERS: PCP Family Medicine; Visit Provider Urology
PROC: (CPT 50590; principal; 2021-10-28 09:00)
DX: N20.1 Calculus of ureter (principal); N40.0 Benign prostatic hyperplasia without lower urinary tract symptoms
CPT/HCPCS: 50590; 36415; 74018; 85610; 85730; 87086; A9270; J0131; J0690; J1100; J2405; J2704; J7120

== ENCOUNTER 2021-11-11 13:18 | Outpatient (CLI) | payer MEDICARE, SELFPAY ==
--- NOTE | ~2021-11-11 | XR_ITS ---
XR abdomen/kub 1V 11/11/2021 13:39 Indication: Ureteral stone Procedure: KUB Comparison: Comparison to multiple prior studies sequentially, with oldest reviewed study dated 08/26. Findings: Bowel gas pattern is nonobstructive. There are cholecystectomy clips. There are surgical ch anges in the pelvis consistent with inguinal hernia repair. Severe lumbar spondylosis. Impression: 1: No acute abdominal abnormality. Reviewed, dictated and finalized at location A. Impression: 1: No acute abdominal abnormality.
== END 2021-11-11 13:19 | disposition home or self-care (01) ==
PROVIDERS: PCP Family Medicine; Visit Provider Urology
DX: N20.1 Calculus of ureter (principal); N40.0 Benign prostatic hyperplasia without lower urinary tract symptoms
CPT/HCPCS: 74018

== ENCOUNTER → 2021-12-06 10:44 | Outpatient (CLI) | payer MEDICARE, SELFPAY ==
--- NOTE | ~2021-12-06 | XR_ITS ---
EXAM: XR abdomen/kub 1V DATE: 12/06/2021 11:00 HISTORY: left uteral stone FOLLOW UP . COMPARISON: 11/11/2021, CT abdomen and pelvis 08/21/2021. FINDINGS: Cholecystectomy clips. Surgical mesh anchors across the pelvis. Senescent and possibly int erstitial changes in the lung bases. Normal bowel gas pattern. No organomegaly. Pelvic phleboliths. L umbar scoliosis and degenerative change. IMPRESSION: No radiographic evidence of nephrolithiasis. Reviewed, dictated and finalized at location K.
== END ==
PROVIDERS: PCP Family Medicine; Visit Provider Urology
DX: N20.1 Calculus of ureter (principal)
CPT/HCPCS: 74018

== ENCOUNTER → 2022-03-15 10:01 | Outpatient (CLI) | payer MEDICARE, SELFPAY ==
--- NOTE | ~2022-03-15 | XR_ITS ---
Supine view of the abdomen Clinical history: Ureteral stone COMPARISON: 12/06/2021 Findings: Bowel gas pattern is nonspecific. No evidence for obstruction or free air. Stable surgical clips and phleboliths in the pelvis. Stable dextroscoliosis and degenerative change of the lumbar spi ne. Cholecystectomy clips noted. Impression: No definite stone identified. Reviewed, dictated and finalized at location . [employer] Impression: No definite stone identified.
== END ==
PROVIDERS: PCP Family Medicine; Visit Provider Nurse Practitioner Family
DX: M54.50 Low back pain, unspecified (principal); N20.1 Calculus of ureter
CPT/HCPCS: 74018

== ENCOUNTER 2022-04-26 09:00 | Outpatient (NON) | payer MEDICARE, SELFPAY | END 2022-04-26 09:01 | disposition home or self-care (01) | PROVIDERS: PCP Family Medicine; Visit Provider Internal Medicine Gastroenterology | DX: Z12.11 Encounter for screening for malignant neoplasm of colon (principal) | CPT/HCPCS: 88305 ==

== ENCOUNTER 2022-04-26 11:43 | Day surgery (SDC) | payer MEDICARE, SELFPAY ==
[2022-03-02 14:04] VITALS: BMI 25.8
[2022-04-11 09:28] VITALS: BMI 26.6
--- NOTE | 2022-04-25 15:59 | PM.HPGS ---
History of Present Illness History of Present Illness Consent: Risks, benefits, and alternatives have been discussed and questions answered. Patient agrees to proceed with procedure. Chief complaint: Gerd and History of Polyps Narrative: Ghanshyam Ingram is a 77 year old male who has been suffering from discomfort in his left lower quadrant ever since he had repair of an incarcerated hernia several years ago.? He was found to have stones that were obstructing his ureteral vesicular junction earlier this year.? He required lithotripsy and finally the stone material passed.? ? When he experiences is a crampy painful discomfort in the left mid abdomen that feels as though his food is ?stuck? this could last 15 hours or so.? Then he will have very loose stool and have relief of his pain.? He does not see blood in his stools.? He has never had issues with constipation.? He states that his symptoms are worse if he eats something pulpy such as oranges, pineapple, or popcorn.? His weight is stable.? He denies indigestion nausea vomiting or weight loss.? He does take meloxicam once a day and prednisone 10 mg a day for arthritis.? He has heartburn and acid reflux symptoms for which he takes omeprazole.? He has been on that for several years.? If he skips even 1 day, he has a flare up with regurgitation.? He denies dysphagia.? He has never had endoscopy to investigate for possible Lang's Review of Systems Review of Systems: All systems reviewed & are unremarkable except as noted in HPI and below PMFSH Past Medical History Medical History Abdominal hernia Arthritis BMI 23.0-23.9, adult BMI 24.0-24.9, adult BPH (benign prostatic hyperplasia) Elevated PSA Kidney stones Osteopenia Rheumatoid arthritis Ureterolithiasis Surgical History Surgical History History of cholecystectomy History of hand surgery History of hernia repair Family History Family History Mother Hypertension Congestive heart failure Mother No problems noted. Father Diabetes mellitus Social History Social History Smoking status: Never smoker Second hand tobacco smoke exposure: No Alcohol intake: never Substance use: never Substance use type: does not use Living arrangements: with family Spiritual care concerns: No Meds Home Medications and Allergies Home Medications Medication Instructions Recorded Confirmed Type cholecalciferol (vitamin D3) 50 50 mcg PO DAILY 07/18/21 04/26/22 History mcg (2,000 unit) tablet meloxicam 7.5 mg tablet 7.5 mg PO DAILY 07/18/21 04/26/22 History omeprazole 20 mg capsule,delayed 20 mg PO DAILY 07/18/21 04/26/22 History release prednisone 10 mg tablet 5 mg PO HS 07/18/21 04/26/22 History finasteride 5 mg tablet 5 mg PO DAILY #30 tabs 08/23/21 04/26/22 Rx multivitamin 1 tablet PO DAILY 10/20/21 04/26/22 History ibandronate 150 mg tablet 150 mg PO MONTHLY 03/03/22 04/26/22 History lidocaine 5 % topical patch 1 patch topical DAILY #15 ea 03/15/22 04/26/22 Rx tramadol 50 mg tablet 50 mg PO Q6H PRN Sleep 03/15/22 04/26/22 History sulfasalazine 500 mg 500 mg PO DAILY 04/11/22 04/26/22 History tablet,delayed release (Azulfidine EN-tabs) Allergies Allergy/AdvReac Type Severity Reaction Status Date / Time Penicillins Allergy Mild Rash Verified 04/26/22 12:06 [id number] Reductase AdvReac Severe Muscle Pain Verified 04/26/22 12:06 Inhibitor methotrexate AdvReac Intermediate Hives Verified 04/26/22 12:06 hydroxychloroquine AdvReac Mild Diarrhea Verified 04/26/22 12:06 Exam Const: General: alert Orientation/consciousness: patient oriented x3 Resp: Auscultation: clear to auscultation bilaterally Cardio: Rhythm: regular rhythm GI: GI Palp: Yes Soft to palpation and No Tend
--- NOTE | 2022-04-26 07:17 | WPDANESEPPF ---
Anes - Initial Pre Proc Eval Procedure: Operation Date: 04/26/22 13:30 Proposed Procedures p Esophagogastroduodenoscopy - Esau Amaya MD s Diagnostic Colonoscopy - Esau Amaya MD Date/Time: 04/26/22 07:17 Surgeon: Esau Amaya MD Pre Op Diagnosis: Gerd and History of Polyps Patient Data Age: 77 Gender: M Height: 1.7 m Weight: 77 kg Allergies Allergy/AdvReac Type Severity Reaction Status Date / Time Penicillins Allergy Mild Rash Verified 04/26/22 12:06 Wtijkny-YNB-FsO Reductase AdvReac Severe Muscle Pain Verified 04/26/22 12:06 Inhibitor methotrexate AdvReac Intermediate Hives Verified 04/26/22 12:06 hydroxychloroquine AdvReac Mild Diarrhea Verified 04/26/22 12:06 Home Medications Medication Instructions Recorded Confirmed Type cholecalciferol (vitamin D3) 50 50 mcg PO DAILY 07/18/21 04/26/22 History mcg (2,000 unit) tablet meloxicam 7.5 mg tablet 7.5 mg PO DAILY 07/18/21 04/26/22 History omeprazole 20 mg capsule,delayed 20 mg PO DAILY 07/18/21 04/26/22 History release prednisone 10 mg tablet 5 mg PO HS 07/18/21 04/26/22 History finasteride 5 mg tablet 5 mg PO DAILY #30 tabs 08/23/21 04/26/22 Rx multivitamin 1 tablet PO DAILY 10/20/21 04/26/22 History ibandronate 150 mg tablet 150 mg PO MONTHLY 03/03/22 04/26/22 History lidocaine 5 % topical patch 1 patch topical DAILY #15 ea 03/15/22 04/26/22 Rx tramadol 50 mg tablet 50 mg PO Q6H PRN Sleep 03/15/22 04/26/22 History sulfasalazine 500 mg 500 mg PO DAILY 04/11/22 04/26/22 History tablet,delayed release (Azulfidine EN-tabs) Patient hx anesthesia problems: none Family hx anesthesia problems: none Results Review: All pre-operative results and documents have been reviewed as part of the pre-operative evaluation. [facility] Past Medical History Medical History Abdominal hernia Arthritis BMI 23.0-23.9, adult BMI 24.0-24.9, adult BPH (benign prostatic hyperplasia) Elevated PSA Kidney stones Osteopenia Rheumatoid arthritis Ureterolithiasis Surgical History Surgical History History of cholecystectomy History of hand surgery History of hernia repair Family History Family History Mother Hypertension Congestive heart failure Mother No problems noted. Father Diabetes mellitus Social History Social History Smoking status: Never smoker Second hand tobacco smoke exposure: No Alcohol intake: never Substance use: never Substance use type: does not use Living arrangements: with family Spiritual care concerns: No Anes - Eval Final PreProcedure Day of Procedure 04/26/22 07:17 Patient weight: overweight Heart: regular rate and rhythm Lungs: clear to auscultation Airway: Mallampati scale class II Neurological: alert and oriented Last oral intake: >/= 8 hours ASA classification: II Emergent: no Anesthetic plan: proceed Anesthesia type and monitoring: general GIVS and standard monitoring Results Review: All pre-operative results and documents have been reviewed as part of the pre-operative evaluation. Informed Consent: The patient's anesthetic plan and its attendant risks and benefits were discussed with the patient/family/POA. Questions were solicited and answers provided to the satisfaction of the patient/family/POA.
[2022-04-26 12:00] VITALS: BP 150/94; PULSE 90; RESP 20; TEMP 36.9; O2SAT 100
[2022-04-26] MEDS: LACTATED RINGERS 1,000 ML 150 ML IV CONT (12:16)
[2022-04-26 14:10] VITALS: BP 91/59; PULSE 90; RESP 16; O2SAT 95
[2022-04-26 14:20] VITALS: BP 92/67; PULSE 80; RESP 16; O2SAT 95
[2022-04-26 14:30] VITALS: BP 98/83; PULSE 79; RESP 16; O2SAT 97
--- NOTE | 2022-04-26 14:39 | SUR.PHASEII ---
1426; PT AWAKE, RESTING QUIETLY. DRINKING JUICE. DENIES PAIN OR NAUSEA. SPOUSE AT BEDSIDE
[2022-04-26 14:40] VITALS: BP 112/81; PULSE 73; RESP 16; O2SAT 97
--- NOTE | 2022-04-26 14:58 | SUR.PHASEII ---
PT AWAKE AND ALERT. DENIES PAIN OR NAUSEA. STATES READY TO GO HOME.
--- NOTE | 2022-04-26 15:09 | SUR.PHASEII ---
1500; DR GONZALEZ NOTIFIED OF PT'S BP UP TO 112/81.
== END 2022-04-26 15:13 | disposition home or self-care (01) ==
PROVIDERS: PCP Family Medicine; Visit Provider Internal Medicine Gastroenterology
PROC: 0DJ08ZZ Inspection of Upper Intestinal Tract, Via Natural or Artificial Opening Endoscopic (ICD-10-PCS; CPT 43235; principal; 2022-04-26 13:30)
PROC: 0DJD8ZZ Inspection of Lower Intestinal Tract, Via Natural or Artificial Opening Endoscopic (ICD-10-PCS; CPT 45378; 2022-04-26 13:30)
DX: K21.9 Gastro-esophageal reflux disease without esophagitis (principal)
CPT/HCPCS: 45378; 43239

== ENCOUNTER → 2022-10-23 09:35 | Outpatient (CLI) | payer MEDICARE, SELFPAY ==
--- NOTE | ~2022-10-23 | XR_ITS ---
EXAMINATION: XR abdomen/kub 1V INDICATION: Calculus of the ureter TECHNIQUE: Supine views of the abdomen were obtained on 2 radiographs. COMPARISON: 03/15/2022 FINDINGS: No definite urinary tract calculi are identified. There are phleboliths of the pelvis. The bowel gas pattern is normal. There is severe lumbar spondylosis. Surgical clips are noted in the pelv is. Surgical clips in the right upper quadrant are likely from prior cholecystectomy. IMPRESSION: 1. No definite urolithiasis identified. Reviewed, dictated and finalized at location B.
== END ==
PROVIDERS: PCP Family Medicine; Visit Provider Urology
DX: N20.1 Calculus of ureter (principal)
CPT/HCPCS: 74018

== ENCOUNTER 2022-11-27 09:45 | Day surgery (SDC) | payer MEDICARE, SELFPAY ==
[2022-11-27] VITALS (13 sets, daily range): BP systolic 114–174; BP diastolic 82–100; PULSE 91–101; RESP 9–20; TEMP 36.6–37.2; O2SAT 96–100
--- NOTE | ~2022-11-27 | CT_ITS ---
EXAMINATION: CT abdomen pelvis w con DATE: 11/27/2022 10:33 INDICATION: Right lower quadrant pain TECHNIQUE: Computed tomography (CT) of the abdomen and pelvis was performed with 100 cc Omnipaque 350 intravenous contrast. The dose-length product was 326.41 mGy-cm. Automated exposure control and iter ative reconstruction technique were employed. COMPARISON: CT dated 08/21/2021. FINDINGS: There is dependent atelectasis. Heart size normal. No significant pleural or pericardial ef fusion. There is an 8 mm left UVJ stone with moderate left hydroureteronephrosis. There is delayed le ft nephrogram. There is left perinephric edema. Fatty infiltration of the liver. Status post cholecys tectomy. Nonobstructive bowel gas pattern. There are changes of bilateral inguinal hernia repair. No free air or free fluid. Enlarged prostate gland. The appendix is not visualized, although there are n o pericecal inflammatory changes. There is a new compression fracture of T10 with approximately 40% l oss of vertebral body height, age indeterminate. There is severe lumbar spondylosis. There are areas of fat necrosis in the left pelvis, consistent with sequela of epiploic appendagitis. IMPRESSION: 1. Left UVJ stone measuring 8 mm with moderate left hydronephrosis. 2: New age-indeterminate T10 compression fracture with approximately 40% loss of vertebral body heigh t. No evidence for retropulsion into the spinal canal. 3: Enlarged prostate gland. Reviewed, dictated and finalized at location B. IMPRESSION: 1. Left UVJ stone measuring 8 mm with moderate left hydronephrosis. 2: New age-indeterminate T10 compression fracture with approximately 40% loss o f vertebral body height. No evidence for retropulsion into the spinal canal. 3: Enlarged prostate gland.
--- NOTE | ~2022-11-27 | XR_ITS ---
EXAMINATION: XR stent kub - surgery DATE: 11/27/2022 13:05 CDT INDICATION: LEFT LASER STONE EXTRACTION WITH STENT PLACEMENT . TECHNIQUE: 4 fluoroscopic images of the abdomen were obtained during left laser stone extraction with stent placement performed by the surgeon. I was not present in the operating room. Fluoroscopy expos ure time was 44.6 seconds. Air Kerma 15.14 mGy. DAP 0.98032 mGym2. COMPARISON: CT abdomen pelvis same date FINDINGS: Family Practice Md images reveal moderate left caliectasis. Surgical clips over the right upper quadrant possibly secondary to cholecystectomy. Indentation of the inferior bladder likely from prostatomegaly. Post st ent placement the upper coil projects over an upper pole calyx and the lower coil projects over the b ladder. IMPRESSION: Fluoroscopic documentation of left laser stone extraction with stent placement. Please refer to the o perative note for complete procedural details . Reviewed, dictated and finalized at location K. IMPRESSION: Fluoroscopic documentation of left laser stone extraction with stent placement. Please refer to the operative note for complete procedural details .
--- NOTE | 2022-11-27 10:03 | ED.ABDPAIN ---
HPI - Abdominal Pain General Chief Complaint: Abdominal Pain Stated Complaint: abd pain and vomiting Time Seen by Provider: 11/27/22 09:57 History of Present Illness HPI narrative: Pt presents with RLQ abdominal pain for the last several hours. Pt has had an appendectomy in past. Pt also has history of recent kidney stones and said had them blasted twice by Dr Onofre. Pt says the pain is similar but different location. Pt also has history of hernias and bowel obstructions. Pt says the pain is constant but waxes and wanes in severity. Related Data Home Medications Medication Instructions Recorded Confirmed cholecalciferol (vitamin D3) 50 50 mcg PO DAILY 07/18/21 11/27/22 mcg (2,000 unit) tablet meloxicam 7.5 mg tablet 7.5 mg PO DAILY 07/18/21 11/27/22 omeprazole 20 mg capsule,delayed 20 mg PO DAILY 07/18/21 11/27/22 release prednisone 10 mg tablet 5 mg PO HS 07/18/21 11/27/22 multivitamin 1 tablet PO DAILY 10/20/21 11/27/22 ibandronate 150 mg tablet 150 mg PO MONTHLY 03/03/22 11/27/22 tramadol 50 mg tablet 50 mg PO Q6H PRN Sleep 03/15/22 11/27/22 sulfasalazine 500 mg 500 mg PO DAILY 04/11/22 11/27/22 tablet,delayed release (Azulfidine EN-tabs) Allergies Allergy/AdvReac Type Severity Reaction Status Date / Time Penicillins Allergy Mild Rash Verified 11/27/22 13:02 [id number] Reductase AdvReac Severe Muscle Pain Verified 11/27/22 13:02 Inhibitor methotrexate AdvReac Intermediate Hives Verified 11/27/22 13:02 hydroxychloroquine AdvReac Mild Diarrhea Verified 11/27/22 13:02 Review of Systems Review of Systems: All systems reviewed & are unremarkable except as noted in HPI and below PMFSH Past Medical History Medical History Abdominal hernia Arthritis BMI 23.0-23.9, adult BMI 24.0-24.9, adult BPH (benign prostatic hyperplasia) Elevated PSA Kidney stones Osteopenia Rheumatoid arthritis Ureterolithiasis Surgical History Surgical History History of cholecystectomy History of hand surgery History of hernia repair Family History Family History Mother Hypertension Congestive heart failure Mother No problems noted. Father Diabetes mellitus Social History Social History Smoking status: Never smoker Second hand tobacco smoke exposure: No Alcohol intake: never Substance use: never Substance use type: does not use Living arrangements: with family Spiritual care concerns: No Exam Const: General: healthy appearing and no acute distress Orientation/consciousness: patient oriented x3 Limitations: no limitations Resp: Effort & Inspection: normal respiratory effort Auscultation: clear to auscultation bilaterally Cardio: Rate: regular rate Rhythm: regular rhythm GI: GI Palp: Yes Soft to palpation and Yes Tenderness to palpation present (GI) (rlq mild no rebound) Auscultation: normal bowel sounds Skin: General skin exam: normal color Wounds: no wounds Neuro: General: patient oriented x3, moves all extremities and no focal motor deficits Speech: normal speech Extrem: General: normal to inspection and no clubbing, cyanosis or edema Psych: Mental Status: mental status grossly normal Affect: normal affect Attitude: cooperative Course Vital Signs Vital signs: Vital Signs Temperature 97.8 F 11/27/22 09:47 Pulse Rate 100 11/27/22 09:47 Respiratory Rate 18 11/27/22 09:47 Blood Pressure 154/91 H 11/27/22 09:47 Pulse Oximetry 100 11/27/22 09:47 Oxygen Delivery Room Air 11/27/22 09:47 Temperature 98 F 11/27/22 13:43 Pulse Rate 92 11/27/22 15:43 Respiratory Rate 16 11/27/22 15:43 Blood Pressure 138/88 11/27/22 15:43 Pulse Oximetry 96 11/27/22 14:14 Oxygen Delivery Room Air 11/27/22 15:43
[2022-11-27] MEDS: ONDANSETRON INJ 4 MG/2 ML VIAL IV PUSH (10:08)
[2022-11-27] MEDS: MORPHINE SULFATE (*CRX) 4 MG/ML INJ IV PUSH (10:09)
[2022-11-27 10:15] LABS: Basophils Absolute Auto 0.1 K/mm3 (0.0-0.1); Basophils Percent Auto 0.6 % (0.2-1.2); Eosinophils Absolute Auto 0.1 K/mm3 (0-0.3); Eosinophils Percent Auto 0.9 % (0-4.4); Hematocrit 45.5 % (42.0-52.0); Hemoglobin 15.1 g/dL (14.0-18.0); Immature Granulocyte Absolute 0.05 K/mm3 (0.00-0.031); Immature Granulocyte Percent A 0.4 % (0-0.5); Lymphocytes Absolute Auto 1.38 K/mm3 (0.9-3.2); Lymphocytes Percent Auto 11.7 % (18.3-44.2); Mean Corpuscular HGB Conc 33.2 g/dl (32-36); Mean Corpuscular Hemoglobin 31.9 pg (26-34); Mean Platelet Volume 10.1 fl (7.4-10.4); Monocytes Absolute Auto 1.1 K/mm3 (0.1-0.6); Monocytes Percent Auto 8.9 % (2.6-8.5); Neutrophils Absolute Auto 9.1 K/mm3 (1.3-6.7); Neutrophils Percent Auto 77.5 % (45.5-73.1); Platelet Count Result 210 k/mm3 (150-375); Red Blood Count 4.74 M/mm3 (4.6-6.20); Red Cell Distribution Width 13.2 % (11.5-14.5); White Blood Count 11.8 K/mm3 (4.5-10.0)
[2022-11-27 10:25] LABS: Estimated CRCL calculation 37 ml/min; Estimated Glomerular Filt Rate 46
[2022-11-27 10:27] LABS: Alanine Aminotransferase 19 U/L (6-50); Albumin Level 4.4 g/dL (3.5-5.1); Alkaline Phosphatase 66 U/L (38-126); Anion Gap 9 mmol/L (8-16); Aspartate Amino Transferase 26 U/L (17-59); Bilirubin,Total 1.5 mg/dL (0.2-1.3); Blood Urea Nitrogen 27 mg/dL (9-20); Calcium 9.3 mg/dL (8.4-10.2); Carbon Dioxide 24 mmol/L (22-30); Chloride 103 mmol/L (98-107); Estimated CRCL calculation 42 ml/min; Estimated Glomerular Filt Rate 54; Glucose 121 mg/dL (65-110); Partial Thromboplastin Time 22.8 SECONDS (22.3-36.8); Potassium 3.7 mmol/L (3.4-5.0); Sodium 136 mmol/L (137-145)
[2022-11-27 10:52] LABS: Appearance Urine Cloudy (Clear); Bacteria Urine None Seen /hpf; Bilirubin Urine Negative (Negative); Blood Urine Negative (Negative); Color Urine Yellow (Yellow); Glucose Urine UA Negative (Negative); Ketones Urine 1+ mg/dL (Negative); Leukocyte Esterase Ur Negative LEU/UL (Negative); Nitrate Urine Negative (Negative); Non Pathogenic Casts 0-2; Protein Urine Trace mg/dL (Negative); RBC Urine 0-2 /hpf (0-2); Squamous Epithelial Cell Urine None seen /hpf (Few); Urobilinogen Urine 0.2 mg/dL (<2.0); WBC Urine 0-5 /hpf; pH Urine 5.5 (5.0-9.0)
[2022-11-27 11:06] LABS: Add Urine Microscopic? YES
[2022-11-27] MEDS: HYDROmorphone HCL INJ (*CRX) 1 MG/ML SYR IV PUSH (11:42)
[2022-11-27] MEDS: LACTATED RINGERS 1,000 ML 30 ML IV CONT ×2 (12:30→13:43)
--- NOTE | 2022-11-27 12:40 | WPDURCON ---
Assessment and Plan Assessment and plan (1) Left lower quadrant pain: Code(s): R10.32 - Left lower quadrant pain Status: Acute (2) Ureteral calculus, left: Code(s): N20.1 - Calculus of ureter Status: Acute Assessment and Plan: Obtain Consent: Cystoscopy, left ureteroscopy with stone extraction, possible left stent placement, possible holmium laser, left retrograde pyelogram. Keep NPO. Plan to go to the OR with Dr. Onofre. Urology Consult Note HPI Date Seen: 11/27/22 Time Seen: 12:40 Requesting Physician: Reid Onofre MD Primary Care Provider: Behzad Aguilera MD Consult Narrative Reason for consult: Left UVJ stone Narrative: Ghanshyam Ingram is a 77 year old male who presented to the ER today for acute onset of Left lower abdominal pain at 0200 this morning accompanied by nausea, chills and vomiting. He states he had gross hematuria one week ago but no other symptoms until early this morning. He denies fever, dysuria, frequency, urgency, flank pain or hesitancy to urinate. He was found on CT scan to have a left UVJ stone measuring 8 mm with moderate left hydronephrosis. WBC 11.8, Creatinine is 1.50, UA is not suspicious of a UTI. Pt. has a history of kidney stones. Review of Systems Constitutional: Constitutional: Reports chills Cardiovascular: Cardiovascular: Denies chest pain Respiratory: Respiratory: Reports no additional respiratory complaints Gastrointestinal: Gastrointestinal: Reports abdominal pain, Reports nausea and Reports vomiting Genitourinary: Genitourinary: Reports hematuria, Denies dysuria, Denies flank pain, Denies testicular pain, Denies urinary frequency, Denies urinary hesitancy, Denies urinary incontinence and Reports urinary urgency [facility] Past Medical History Medical History Abdominal hernia Arthritis BMI 23.0-23.9, adult BMI 24.0-24.9, adult BPH (benign prostatic hyperplasia) Elevated PSA Kidney stones Osteopenia Rheumatoid arthritis Ureterolithiasis Surgical History Surgical History History of cholecystectomy History of hand surgery History of hernia repair Family History Family History Mother Hypertension Congestive heart failure Mother No problems noted. Father Diabetes mellitus Social History Social History Smoking status: Never smoker Second hand tobacco smoke exposure: No Alcohol intake: never Substance use: never Substance use type: does not use Living arrangements: with family Spiritual care concerns: No Meds Home Medications and Allergies Home Medications Medication Instructions Recorded Confirmed Type cholecalciferol (vitamin D3) 50 50 mcg PO DAILY 07/18/21 06/05/22 History mcg (2,000 unit) tablet meloxicam 7.5 mg tablet 7.5 mg PO DAILY 07/18/21 06/05/22 History omeprazole 20 mg capsule,delayed 20 mg PO DAILY 07/18/21 06/05/22 History release prednisone 10 mg tablet 5 mg PO HS 07/18/21 06/05/22 History finasteride 5 mg tablet 5 mg PO DAILY #30 tabs 08/23/21 06/05/22 Rx multivitamin 1 tablet PO DAILY 10/20/21 06/05/22 History ibandronate 150 mg tablet 150 mg PO MONTHLY 03/03/22 06/05/22 History lidocaine 5 % topical patch 1 patch topical DAILY #15 ea 03/15/22 05/30/22 Rx tramadol 50 mg tablet 50 mg PO Q6H PRN Sleep 03/15/22 06/05/22 History sulfasalazine 500 mg 500 mg PO DAILY 04/11/22 06/05/22 History tablet,delayed release (Azulfidine EN-tabs) dicyclomine 10 mg capsule See Rx Instructions .Route 05/30/22 06/05/22 Rx .COMPLEX #360 caps Allergies Allergy/AdvReac Type Severity Reaction Status Date / Time Penicillins Allergy Mild Rash Verified 05/30/22 09:16 Glveivm-[id number]-MqH Reductase AdvReac Severe Muscle Pain Verified 05/30/22 09:16 Inhibitor m
--- NOTE | 2022-11-27 12:50 | WPDHPUPDATE1 ---
History and Physical Update Update Date/Time: 11/27/22 12:50 Imaging reviewed - agree with plans for cystoscopy, left ureteroscopy with stone extraction, possible laser lithotripsy, retrograde pyelogram and possible stent placement. History and Physical has been reviewed, including an updated exam of the patient. There are NO changes in the patient's condition. Risks, benefits, and alternatives have been discussed and questions answered. Patient agrees to proceed with procedure.
--- NOTE | 2022-11-27 12:50 | WPDANESEPPF ---
Anes - Initial Pre Proc Eval Procedure: Operation Date: 11/27/22 13:00 Proposed Procedures p Cystoscopy,Right Ureteroscopy,Right Retrograde Pyelogram,Right Stone Extraction,Possible Holmium Laser,Possible Stent Placement - Reid Onofre MD Date/Time: 11/27/22 12:50 Surgeon: Reid Onofre MD Pre Op Diagnosis: abd pain and vomiting Patient Data Age: 77 Gender: M Height: 1.73 m Weight: 72 kg Last Vital Signs Temp 36.8 C 11/27/22 12:21 Pulse 101 H 11/27/22 12:21 Resp 18 11/27/22 12:21 BP 158/99 H 11/27/22 12:21 Pulse Ox 98 11/27/22 12:21 O2 Del Method Room Air 11/27/22 09:47 Allergies Allergy/AdvReac Type Severity Reaction Status Date / Time Penicillins Allergy Mild Rash Verified 11/27/22 13:02 [id number] Reductase AdvReac Severe Muscle Pain Verified 11/27/22 13:02 Inhibitor methotrexate AdvReac Intermediate Hives Verified 11/27/22 13:02 hydroxychloroquine AdvReac Mild Diarrhea Verified 11/27/22 13:02 Home Medications Medication Instructions Recorded Confirmed Type cholecalciferol (vitamin D3) 50 50 mcg PO DAILY 07/18/21 11/27/22 History mcg (2,000 unit) tablet meloxicam 7.5 mg tablet 7.5 mg PO DAILY 07/18/21 11/27/22 History omeprazole 20 mg capsule,delayed 20 mg PO DAILY 07/18/21 11/27/22 History release prednisone 10 mg tablet 5 mg PO HS 07/18/21 11/27/22 History finasteride 5 mg tablet 5 mg PO DAILY #30 tabs 08/23/21 11/27/22 Rx multivitamin 1 tablet PO DAILY 10/20/21 11/27/22 History ibandronate 150 mg tablet 150 mg PO MONTHLY 03/03/22 11/27/22 History lidocaine 5 % topical patch 1 patch topical DAILY #15 ea 03/15/22 11/27/22 Rx tramadol 50 mg tablet 50 mg PO Q6H PRN Sleep 03/15/22 11/27/22 History sulfasalazine 500 mg 500 mg PO DAILY 04/11/22 11/27/22 History tablet,delayed release (Azulfidine EN-tabs) dicyclomine 10 mg capsule See Rx Instructions .Route 05/30/22 11/27/22 Rx .COMPLEX #360 caps Laboratory Tests 11/27/22 11/27/22 11/27/22 10:09 10: 10:42 WBC 11.8 H K/mm3 (4.5-10.0) RBC 4.74 M/mm3 (4.6-6.20) Hgb 15.1 g/dL (14.0-18.0) Hct 45.5 % (42.0-52.0) MCV 96.0 fl (80-100) MCH 31.9 pg (26-34) MCHC 33.2 g/dl (32-36) RDW 13.2 % (11.5-14.5) Plt Count 210 k/mm3 (150-375) MPV 10.1 fl (7.4-10.4) Immature Gran % (Auto) 0.4 % (0-0.5) Neut % (Auto) 77.5 H % (45.5-73.1) Lymph % (Auto) 11.7 L % (18.3-44.2) [place] % (Auto) 8.9 H % (2.6-8.5) Eos % (Auto) 0.9 % (0-4.4) Baso % (Auto) 0.6 % (0.2-1.2) Lymph # (Auto) 1.38 K/mm3 (0.9-3.2) [place] # (Auto) 1.1 H K/mm3 (0.1-0.6) Eos # (Auto) 0.1 K/mm3 (0-0.3) Baso # (Auto) 0.1 K/mm3 (0.0-0.1) Abs Immat Gran (auto) 0.05 H K/mm3 (0.00-0.031) Absolute Neuts (auto) 9.1 H K/mm3 (1.3-6.7) Absolute Nucleated RBC 0.0 K/mm3 (0.0-0.012) Nucleated RBC % 0.0 % (0.0-0.2) PT 13.0 Seconds (11.1-14.7) INR 1.0 APTT 22.8 SECONDS (22.3-36.8) Sodium 136 L mmol/L (137-145) Potassium 3.7 mmol/L (3.4-5.0) Chloride 103 mmol/L (98-107) Carbon Dioxide 24 mmol/L (22-30) Anion Gap 9 mmol/L (8-16) BUN 27 H D mg/dL (9-20) Creatinine 1.30 mg/dL 1.50 mg/dL (0.7-1.3) (0.8-1.5) Estim Creat Clear Calc 42 ml/min 37 ml/min Estimated GFR 54 L 46 L (59 - ) (59 - ) Glucose 121 H mg/dL (65-110) Calcium 9.3 mg/dL (8.4-10.2) Total Bilirubin 1.5 H mg/dL (0.2-1.3) AST 26 U/L (17-59) ALT 19 U/L (6-50) Alkaline Phosphatase 66 U/L (38-126) Total Protein 7.0 g/dL (6.3-8.2) Albumin 4.4 g/dL (3.5-5.1) Urine Color Yellow (Yellow
[2022-11-27] MEDS: ceFAZolin 2 GM/D5W 50 ML 2 GM/50 ML BAG IVPB (12:59)
[2022-11-27] MEDS: LIDOCAINE HCL 2% GEL UROJET 10 ML PKG MUCOUS MEM (13:10)
--- NOTE | 2022-11-27 13:37 | W.PM.PROC2 ---
Procedure Note - Detailed Date of Procedure 11/27/22 Pre-op Diagnosis Left distal ureteral calculus Post-op Diagnosis Same Procedure Performed Cystoscopy, left ureteroscopy with laser lithotripsy, stone extraction and stent placement Surgeon Reid Onofre MD Anesthesia General Description of Procedure After the uneventful induction of general anesthetic the patient is prepped and draped in routine sterile fashion while in dorsal lithotomy position. Cystoscopy is undertaken with a 19 F rigid cystoscope. He has marked prostatic hyperplasia with a large median lobe. The bladder was trabeculated. There was no intravesical foreign body neoplasm. On fluoroscopy I can see a 7 mm stone at the left UVJ. A 0.035 in glidewire is advanced in the left renal pelvis and distal ureters dilated with an 8 F 10 F dilator. Ureteroscopy was undertaken with a short tapered semi-rigid ureteral scope. The 7 mm stone is fracture with a 200 micron holmium laser fiber and all pieces were extracted with a 1.5 from F disposable stone basket. I placed a 4.8 F variable length stent in the left ureter with proximal coil in the renal pelvis and distal coil in the bladder. Estimated Blood Loss 0
== END 2022-11-27 15:56 | disposition home or self-care (01) ==
LOC: ANHED 11:40 → ANHSURGERY 12:01
PROVIDERS: Emergency Provider Emergency Medicine; PCP Family Medicine; Visit Provider Urology
PROC: (CPT 52352; principal; 2022-11-27 13:00)
DX: N13.2 Hydronephrosis with renal and ureteral calculous obstruction (principal); M06.9 Rheumatoid arthritis, unspecified; N40.0 Benign prostatic hyperplasia without lower urinary tract symptoms
CPT/HCPCS: 52356; 36415; 74177; 80053; 81001; 82365; 85025; 85610; 85730; 88300; 96374; 96375; 99285; C1758; C1769; C2617; J0690; J1100; J1170; J2270; J2371; J2405; J2704; J3010; J7120; Q9967

== ENCOUNTER → 2022-12-01 09:36 | Outpatient (CLI) | payer MEDICARE, SELFPAY ==
--- NOTE | ~2022-12-01 | XR_ITS ---
XR knee LT min 4V 12/01/2022 09:54 Indication: Left knee pain Procedure: 5 views left knee Comparison: No prior studies for comparison. Findings: There is tricompartment osteoarthritis, moderate in the medial compartment. No fracture, gamble bluxation or dislocation. No significant joint effusion. No foreign bodies. Impression: 1: Mild-moderate tricompartment osteoarthritis of the left knee. Reviewed, dictated and finalized at location B. Impression: 1: Mild-moderate tricompartment osteoarthritis of the left knee.
--- NOTE | ~2022-12-01 | XR_ITS ---
EXAMINATION: XR knee RT min 4V DATE: 12/01/2022 09:54 INDICATION: Right knee pain. TECHNIQUE: 4 views of right knee were obtained. COMPARISON: None. FINDINGS: There is varus angulation at the knee. No fracture. There is severe osteoarthritis of media l compartment and mild osteoarthritis of lateral and patellofemoral compartments. No knee joint effus ion. IMPRESSION: 1. Severe right knee osteoarthritis. Reviewed, dictated and finalized at location E.
== END ==
PROVIDERS: PCP Family Medicine; Visit Provider Nurse Practitioner Family
DX: M17.0 Bilateral primary osteoarthritis of knee (principal)
CPT/HCPCS: 73564

== ENCOUNTER 2023-01-19 09:21 | Outpatient (CLI) | payer MEDICARE, SELFPAY ==
[2023-01-19 11:09] LABS: Hematocrit 48.1 % (42.0-52.0); Hemoglobin 15.7 g/dL (14.0-18.0); Mean Corpuscular HGB Conc 32.6 g/dl (32-36); Mean Corpuscular Hemoglobin 31.9 pg (26-34); Mean Corpuscular Volume 97.8 fl (80-100); Mean Platelet Volume 10.3 fl (7.4-10.4); Platelet Count Result 198 k/mm3 (150-375); Red Blood Count 4.92 M/mm3 (4.6-6.20); Red Cell Distribution Width 13.7 % (11.5-14.5); White Blood Count 8.9 K/mm3 (4.5-10.0)
[2023-01-19 11:30] LABS: Alanine Aminotransferase 19 U/L (6-50); Albumin Level 4.2 g/dL (3.5-5.1); Alkaline Phosphatase 78 U/L (38-126); Anion Gap 5 mmol/L (8-16); Aspartate Amino Transferase 20 U/L (17-59); Bilirubin,Total 1.7 mg/dL (0.2-1.3); Blood Urea Nitrogen 16 mg/dL (9-20); Calcium 9.2 mg/dL (8.4-10.2); Carbon Dioxide 27 mmol/L (22-30); Chloride 105 mmol/L (98-107); Estimated Glomerular Filt Rate > 60; Glucose 82 mg/dL (65-110); Potassium 4.4 mmol/L (3.4-5.0); Sodium 137 mmol/L (137-145)
== END 2023-01-19 09:22 | disposition home or self-care (01) ==
PROVIDERS: PCP Family Medicine; Referring Provider Orthopaedic Surgery; Visit Provider Nurse Practitioner Family
DX: E87.1 Hypo-osmolality and hyponatremia (principal); N28.9 Disorder of kidney and ureter, unspecified; D72.829 Elevated white blood cell count, unspecified; R79.89 Other specified abnormal findings of blood chemistry; R73.09 Other abnormal glucose
CPT/HCPCS: 36415; 80053; 83036; 85027

== ENCOUNTER 2023-02-16 12:24 | Outpatient (CLI) | payer MEDICARE, SELFPAY ==
--- NOTE | ~2023-02-16 | CT_ITS ---
EXAMINATION: CT LE RT wo con DATE: 02/16/2023 13:00 INDICATION: Right knee pain for preoperative planning. TECHNIQUE: High resolution computed tomography (CT) of the right knee was performed without intraveno us contrast. Additional sagittal and coronal reconstructions were performed. Automated exposure contr ol and iterative reconstruction technique were employed. The dose-length product was 1882.77 mGy-cm. COMPARISON: Right knee radiographs dated 12/01/2022 FINDINGS: Increased fat within the bilateral inguinal canals with postoperative changes of bilateral inguinal h ernia repairs. There are few diverticula along the sigmoid colon without adjacent from trace strandin g to suggest diverticulitis. There is diffuse wall thickening of the bladder with a bladder diverticu lum at the dome likely related to chronic outlet obstruction from the enlarged prostate which measure s 5.2 x 5.2 cm. No pathologically enlarged pelvic or inguinal lymphadenopathy. Bone alignment is normal. No fracture. Polyarticular osteoarthritis, mild at the right hip, foot and ankle. Tricompartmental osteoarthritis at the left knee with small marginal ossified small 3 compartm ents. The moderate to severe joint space narrowing in the medial compartment evident on prior weightb earing radiographs is not appreciated on the current nonweightbearing imaging. There is however corti jb irregularity with subarticular cystlike changes suggesting overlying high-grade chondromalacia at the anterior weightbearing medial femoral condyle. And along the posterolateral margin of the medial tibial plateau. Small right knee joint effusion. IMPRESSION: 1. 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 Reviewed, dictated and finalized at location A. SCOPE TECHNICIAN
== END 2023-02-16 12:25 | disposition home or self-care (01) ==
PROVIDERS: PCP Family Medicine; Visit Provider Orthopaedic Surgery
DX: M17.0 Bilateral primary osteoarthritis of knee (principal)
CPT/HCPCS: 73700

== ENCOUNTER 2023-02-27 09:33 | Outpatient (CLI) | payer MEDICARE, SELFPAY ==
--- NOTE | 2023-02-27 09:54 | ECG_ITS ---
Measurements Intervals [place] Rate: 67 P: 62 MN: 149 QRS: 26 QRSD: 83 T: 42 QT: 373 QTc: 396 Interpretive Statements SINUS RHYTHM EARLY PRECORDIAL R/S TRANSITION BORDERLINE ECG NO PREVIOUS ECG AVAILABLE FOR COMPARISON Electronically Signed On 02-27-2023 10:29:05 THEATER TECHNICIAN by Zion Guevara D.O.
[2023-02-27 10:12] LABS: Bilirubin,Total 1.6 mg/dL (0.2-1.3)
== END 2023-02-27 09:34 | disposition home or self-care (01) ==
LOC: ANHLAB 09:36
PROVIDERS: PCP Family Medicine; Visit Provider Nurse Practitioner Family
DX: M17.0 Bilateral primary osteoarthritis of knee (principal); R17 Unspecified jaundice
CPT/HCPCS: 36415; 82247; 93005

== ENCOUNTER 2023-03-13 15:43 | Outpatient (CLI) | payer MEDICARE, SELFPAY ==
[2023-03-13 16:38] LABS: Alanine Aminotransferase 20 U/L (6-50); Albumin Level 4.1 g/dL (3.5-5.1); Alkaline Phosphatase 60 U/L (38-126); Aspartate Amino Transferase 26 U/L (17-59); Bilirubin,Total 1.2 mg/dL (0.2-1.3)
[2023-03-13 17:18] LABS: Iron 103 ug/dL (49-181)
[2023-03-13 17:27] LABS: Percent Iron Saturation 33 % (20-50)
[2023-03-17 09:29] LABS: Ceruloplasmin 24 mg/dL (18-36); Immunoglobulin A 201 mg/dL (70-320); TTG IGA AB <1.0 U/mL (<15.0)
[2023-03-17 15:00] LABS: GGT 13 U/L (3-70)
[2023-03-17 21:50] LABS: Mitochondrial (M2) Ab (IgG) <=20.0 U (<=20.0)
[2023-03-20 05:49] LABS: LKM 1 Antibody <=20.0 U (<=20.0)
[2023-03-20 14:51] LABS: Anti Nuclear Antibody Pattern Nuclear, Speckled; Anti Nuclear Antibody Titer 1:40 (Negative)
[2023-03-20 16:07] LABS: ALT 15 U/L (9-46); Alpha Fetoprotein Tumor Marker 4.6 ng/mL (<6.1); Alpha-2-Macroglobulin 258 mg/dL (106-279); Apolipoprotein A1 135 mg/dL (94-176); Fibrosis Score 0.49; Fibrosis Stage F2; GGT 14 U/L (3-70); Haptoglobin 204 mg/dL (43-212); Necroinflammat Act Grade A0; Total Bilirubin 0.9 mg/dL (0.2-1.2)
[2023-03-21 12:43] LABS: Actin Antibody (IgG) <20 U (<20)
== END 2023-03-13 15:44 | disposition home or self-care (01) ==
LOC: ANHLAB 15:53
PROVIDERS: PCP Family Medicine; Visit Provider Nurse Practitioner
DX: K58.9 Irritable bowel syndrome, unspecified (principal); K74.60 Unspecified cirrhosis of liver; K76.0 Fatty (change of) liver, not elsewhere classified; R74.8 Abnormal levels of other serum enzymes
CPT/HCPCS: 36415; 80076; 81596; 82105; 82390; 82728; 82784; 82977; 83520; 83540; 83550; 86038; 86039; 86364; 86376

== ENCOUNTER 2023-03-23 10:54 | Outpatient (CLI) | payer MEDICARE, SELFPAY ==
--- NOTE | ~2023-03-23 | US_ITS ---
Limited Abdominal Sonogram: Real-time sonographic imaging of the right upper quadrant was performed. Clinical History: Hyperbilirubinemia, fatty liver Findings: The liver appears echogenic, with no evidence of mass lesion or bile duct dilatation. Main portal vein demonstrates normal direction of flow. The gallbladder is absent, compatible prior sidra cystectomy. The common bile duct measures 3 mm. The visualized pancreas, aorta, and IVC are unremark able. Impression: Diffuse fatty infiltration of the liver. Status post cholecystectomy. Reviewed, dictated and finalized at location . E CARE NURSE Impression: Diffuse fatty infiltration of the liver. Status post cholecystectomy.
== END 2023-03-23 10:55 | disposition home or self-care (01) ==
PROVIDERS: PCP Family Medicine; Visit Provider Nurse Practitioner
DX: K76.0 Fatty (change of) liver, not elsewhere classified (principal); R74.8 Abnormal levels of other serum enzymes; Z90.49 Acquired absence of other specified parts of digestive tract
CPT/HCPCS: 76705

== ENCOUNTER 2023-05-21 09:38 | Outpatient (CLI) | payer MEDICARE, SELFPAY ==
[2023-05-21 11:13] LABS: Basophils Absolute Auto 0.1 K/mm3 (0.0-0.1); Basophils Percent Auto 0.7 % (0.2-1.2); Eosinophils Absolute Auto 0.2 K/mm3 (0-0.3); Eosinophils Percent Auto 2.1 % (0-4.4); Hematocrit 46.1 % (42.0-52.0); Hemoglobin 15.4 g/dL (14.0-18.0); Immature Granulocyte Absolute 0.04 K/mm3 (0.00-0.031); Immature Granulocyte Percent A 0.6 % (0-0.5); Lymphocytes Absolute Auto 1.82 K/mm3 (0.9-3.2); Lymphocytes Percent Auto 25.2 % (18.3-44.2); Mean Corpuscular HGB Conc 33.4 g/dl (32-36); Mean Corpuscular Hemoglobin 32.6 pg (26-34); Mean Corpuscular Volume 97.5 fl (80-100); Mean Platelet Volume 10.1 fl (7.4-10.4); Monocytes Absolute Auto 0.7 K/mm3 (0.1-0.6); Monocytes Percent Auto 9.3 % (2.6-8.5); Neutrophils Absolute Auto 4.5 K/mm3 (1.3-6.7); Neutrophils Percent Auto 62.1 % (45.5-73.1); Platelet Count Result 191 k/mm3 (150-375); Red Blood Count 4.73 M/mm3 (4.6-6.20); Red Cell Distribution Width 12.9 % (11.5-14.5); White Blood Count 7.2 K/mm3 (4.5-10.0)
[2023-05-21 11:24] LABS: Albumin Level 4.7 g/dL (3.5-5.1)
[2023-05-21 11:28] LABS: Anion Gap 7 mmol/L (4-12); Blood Urea Nitrogen 21 mg/dL (9-20); Calcium 9.6 mg/dL (8.4-10.2); Carbon Dioxide 27 mmol/L (22-30); Chloride 104 mmol/L (98-107); Estimated Glomerular Filt Rate > 60; Glucose 83 mg/dL (65-110); Potassium 4.6 mmol/L (3.4-5.0); Sodium 138 mmol/L (137-145)
[2023-05-21 11:30] LABS: Hemoglobin A1C 5.7 % (<5.7)
[2023-05-21 11:42] LABS: INR 0.9; Prothrombin Time 12.7 Seconds (11.1-14.7)
[2023-05-21 11:43] LABS: Partial Thromboplastin Time 23.8 Seconds (22.3-36.8)
[2023-05-21 11:56] LABS: Urine Cotinine NEGATIVE
[2023-05-21 13:21] LABS: MRSA (PCR) NOT DETECTED (NOT DETECTE)
== END 2023-05-21 09:39 | disposition home or self-care (01) ==
LOC: ANHSURGERY 09:45
PROVIDERS: Anesthesiology; PCP Family Medicine; Visit Provider Orthopaedic Surgery
DX: M17.11 Unilateral primary osteoarthritis, right knee (principal); K76.0 Fatty (change of) liver, not elsewhere classified; Z01.818 Encounter for other preprocedural examination
CPT/HCPCS: 36415; 80048; 80307; 82040; 83036; 85025; 85610; 85730; 87641

== ENCOUNTER 2023-06-14 00:42 | Day surgery (SDC) | payer MEDICARE, SELFPAY ==
--- NOTE | 2023-05-21 09:50 | PC.NURSE ---
Report to the Outpatient Waiting Room, entrance under the green pavilion located off [facility], at time __8:00AM__ on date __06/14/23 . Planned Procedure Time: __10:00AM . Time changes happen often and if your time is changed the preop area will call you the afternoon before. - You and your visitor will be asked to self-screen and do not enter if you have any COVID symptoms. - A mask is optional within the hospital at this time. Patients may have clear liquids (water, carbonated beverages, clear teas, apple juice) until 3 hours prior to surgery with a maximum of 20 ounces. - No food from midnight until time of surgery. Take the following medications with a SIP of water the morning of surgery: ___NONE DO NOT STOP ANY OF YOUR OTHER PRESCRIPTION MEDICATIONS PRIOR TO SURGERY ?EXCEPT THE FOLLOWING Medications to discontinue per physician ___HOLD MELOXICAM AND ALL VITAMINS/SUPPLEMENTS 7 DAYS PRE-OP PER DR PARTIDA-- LAST DOSE 06/06/23. Please no make-up, nail luxembourgish, hairspray, perfume, deodorant, or body powder the day of surgery. No jewelry (including any body piercings) or valuables the day of surgery, leave them at home. Please take a shower or bath the night before, or the morning of, surgery with an antibacterial soap. Wear comfortable, loose fitting clothing. - Jewelry must be removed prior to entering the operating room. Rings and piercings that are not removed may be cut off. - The hospital will not accept responsibility for valuables. - Please leave all valuables, including medications, at home the day of surgery. If you are going home after surgery, a licensed milk truck driver must drive you home. - NO public transportation without another adult if you receive anesthesia. - We recommend that an adult stay with you for 24 hours following discharge. - We also recommend that you do not drive, make important decision, drink alcoholic beverages, or take any drugs that were not prescribed by your health care provider for at least 24 hours after your discharge time. Follow any additional instructions given to you from your surgeon. If you or anyone in your household have experienced Covid symptoms in the past week, please notify your surgeon or the nurse liaison at the phone number below for possible testing. Telephone instructions given to ___PATIENT and asked if any additional questions and then verbalized understanding. Patient advised to call surgeon office or pre surgery nurse liaison [phone] if any additional questions.
[2023-05-21 10:08] VITALS: BP 151/90; PULSE 76; RESP 16; TEMP 37; O2SAT 100; BMI 25.0
[2023-06-14] VITALS (13 sets, daily range): BP systolic 124–151; BP diastolic 75–95; PULSE 78–86; RESP 11–19; TEMP 36–36.5; O2SAT 90–100
--- NOTE | ~2023-06-14 | XR_ITS ---
EXAMINATION: [id number] DATE: 06/14/2023 12:19 INDICATION: Total right knee arthroplasty. Postop. TECHNIQUE: 2 views of right knee were obtained. COMPARISON: Right knee radiographs 12/01/2022 FINDINGS: There is a total right knee arthroplasty in near-anatomic alignment without patellar resurf acing. No fracture. There is an osteophyte of the patella. There is gas in the knee joint and soft ti ssues, consistent with recent surgery. IMPRESSION: 1. Total right knee arthroplasty in near-anatomic alignment. Reviewed, dictated and finalized at location A.
[2023-06-14] MEDS: ACETAMINOPHEN 500 MG TABLET 1000 MG PO (08:45)
[2023-06-14] MEDS: LACTATED RINGERS 1,000 ML 30 ML IV CONT ×2 (08:45→12:01)
[2023-06-14] MEDS: TRANEXAMIC ACID 1,000MG/ISO100 1,000 MG/100 ML BAG 200 MG IVPB (08:45)
--- NOTE | 2023-06-14 09:15 | WPDANESEPPF ---
Anes - Initial Pre Proc Eval Procedure: Operation Date: 06/14/23 10:00 Proposed Procedures p Right Custom Total Knee Arthroplasty - Srikanth Kevin MD Date/Time: 06/14/23 09:15 Surgeon: Srikanth Kevin MD Pre Op Diagnosis: primary OA right knee Patient Data Age: 78 Gender: M Height: 1.73 m Weight: 72.9 kg Last Vital Signs Temp 36.1 C L 06/14/23 08:45 Pulse 78 06/14/23 08:45 Resp 16 06/14/23 08:45 BP 138/91 H 06/14/23 08:45 Pulse Ox 100 06/14/23 08:45 O2 Del Method Room Air 06/14/23 08:45 Allergies Allergy/AdvReac Type Severity Reaction Status Date / Time Penicillins Allergy Mild Unknown Verified 06/14/23 08:54 Azypuyy-BFF-FsE Reductase AdvReac Severe Muscle Pain Verified 06/14/23 08:54 Inhibitor methotrexate AdvReac Intermediate Hives Verified 06/14/23 08:54 hydroxychloroquine AdvReac Mild Other Verified 06/14/23 08:54 tamsulosin [From Flomax] AdvReac SEXUAL Verified 06/14/23 08:54 PROBLEM Home Medications Medication Instructions Recorded Confirmed Type cholecalciferol (vitamin D3) 50 50 mcg PO DAILY 07/18/21 06/14/23 History mcg (2,000 unit) tablet omeprazole 20 mg capsule,delayed 20 mg PO DAILY 07/18/21 06/14/23 History release finasteride 5 mg tablet 5 mg PO DAILY #30 tabs 08/23/21 06/14/23 Rx multivitamin 1 tablet PO DAILY 10/20/21 06/14/23 History ibandronate 150 mg tablet 150 mg PO MONTHLY 03/03/22 06/14/23 History acetaminophen 500 mg capsule 1,000 mg PO Q6H PRN Pain 05/21/23 06/14/23 History guar gum 1 gram chewable tablet 1 g PO TID 05/21/23 06/14/23 History meloxicam 7.5 mg tablet 7.5 mg PO DAILY 05/21/23 06/14/23 History prednisone 10 mg tablet 10 mg PO HS 05/21/23 06/14/23 History tramadol 50 mg tablet 50 mg PO TID PRN Pain 05/21/23 06/14/23 History Patient hx anesthesia problems: none Family hx anesthesia problems: none Results Review: All pre-operative results and documents have been reviewed as part of the pre-operative evaluation. [facility] Past Medical History Medical History Abdominal hernia Arthritis BMI 23.0-23.9, adult BMI 24.0-24.9, adult BPH (benign prostatic hyperplasia) Elevated liver enzymes Elevated PSA IBS (irritable bowel syndrome) Kidney stones NAFLD (nonalcoholic fatty liver disease) Osteopenia Rheumatoid arthritis Ureterolithiasis Surgical History Surgical History History of cholecystectomy History of hand surgery History of hernia repair Family History Family History Mother Hypertension Congestive heart failure Mother No problems noted. Father Diabetes mellitus Social History Social History Smoking status: Never smoker Second hand tobacco smoke exposure: No Alcohol intake: never Substance use: never Substance use type: does not use Do You Feel Safe in your Home?: Yes Lack of Transportation: No Lack of Food: Never True Current Housing: I Have Housing Concerned About Future Housing: No Difficulty Paying Gas/Electric Bills: No Difficulty Paying for Meds: Decline to Answer Currently Unemployed: No Education: Trade/Vocational Certificate Difficulty w/ Childcare or Family Care: No Living arrangements: with family Additional living arrangements comments: Spiritual care concerns: No Anes - Eval Final PreProcedure Day of Procedure 06/14/23 09:15 Patient weight: normal Heart: regular rate and rhythm Lungs: clear to auscultation Airway: Mallampati scale class II Neurological: alert and oriented Last oral intake: >/= 8 hours ASA classification: II Emergent: no Anesthetic plan: proceed Anesthesia type and monitoring: general LMA and standard monitoring Results Review: All pre-operative results and documents have been reviewed as part of
--- NOTE | 2023-06-14 09:46 | WPDANESPNB ---
Anes - Peripheral Nerve Block Date/Time: 06/14/23 09:46 I have discussed with the patient/family/POA the placement of a peripheral nerve block for post-operative pain management, including associated risks, benefits, complications, and side effects. Alternative methods of post-operative analgesia were detailed. Questions were solicited and answers provided to the satisfaction of the patient/family/POA. Time-Out: A pre-procedural Time-Out was completed immediately before starting the procedure and confirmed: Patient Identification, Site, Procedure, Patient Position and the Availability of Requisite Equipment. Clinical Indications: Acute post-operative pain management requested by the operative surgeon. Nerve Block Insertion Note Anes-nerve block: adductor canal right Patient position: supine Skin prep: chlorhexidine Needle: 22 gauge, stimulating, insulated echogenic needle. Needle length: 80 mm Technique: ultrasound Injectate: bupivacaine 0.5% with epi 5 mcg/ml (30cc) Observations: tolerated well Complications: none Procedure start time:: 939 Procedure end time:: 940
--- NOTE | 2023-06-14 09:48 | WPDHPUPDATE1 ---
History and Physical Update Update Date/Time: 06/14/23 09:48 History and Physical has been reviewed, including an updated exam of the patient. There are NO changes in the patient's condition. Risks, benefits, and alternatives have been discussed and questions answered. Patient agrees to proceed with procedure.
[2023-06-14] MEDS: ceFAZolin 2 GM/D5W 50 ML 2 GM/50 ML BAG IVPB ×2 (10:02→17:31)
[2023-06-14] MEDS: SODIUM CHLORIDE 0.9% IV 37.7 ML, MORPHINE SULFATE INJ (*CRX) 2 MG, ROPivacaine HCL 1% 2... INFILTRATE (10:59)
[2023-06-14] MEDS: GENTAMICIN BONE CEMENT REFOBACIN 1 EACH TOPICAL (11:20)
[2023-06-14] MEDS: fentaNYL CITRATE INJ (*CRX) 100 MCG/2 ML VIAL 25 MCG IV PUSH ×8 (12:09→13:10)
--- NOTE | 2023-06-14 12:53 | W.PM.PROC2 ---
Procedure Note - Detailed Date of Procedure 06/14/23 Pre-op Diagnosis primary OA right knee Post-op Diagnosis Same Procedure Performed Total knee arthroplasty, right. Surgeon Srikanth Kevin MD Multiple Slide Operator Nissa Espino PA-C Anesthesia General and Regional (Subsartorial block.) Findings Custom total knee implant. Severe medial compartment disease. Satisfactory bone quality. +4 tibial resection. Minimal PCL release. Anatomic slope cut. Description of Procedure Preoperative antibiotics were given. The limb was prepped and draped in the usual sterile fashion with a well-padded tourniquet high on the thigh. The limb was exsanguinated and the tourniquet inflated to 300 mmHg. A longitudinal incision was created just medial to the patella. A trivector approach to the knee was performed. Arthrotomy was taken down through the joint capsule. No significant releases were initially taken. The femur was exposed and the F1 jig was applied. The coring tool was used to remove the cartilage for the F2 jig to sit flush with the bone. The jig was pinned and the distal cut carefully taken. Caliper measurements confirmed appropriate bony resections according to the preoperative templated plan. The F4 cutting jig for the femur was applied, at the standard rotation. The AP and anterior chamfer cuts were taken. The F5 jig was applied and the posterior chamfer cuts were taken. The tibia was prepared using the T1 jig, after removing cartilage for the jig contact points. Proper alignment was checked with the alignment jocelyn. The tibia was cut using the T1u guide. Gap balancing was performed. Gap measurements were taken and the knee was trialed. Excellent alignment and soft tissue balancing was confirmed. The posterior cruciate ligament was recessed along the proximal tibia. The patella appeared very healthy. Meniscal remnants were removed. The trial components were assembled. Excellent range of motion and proper soft tissue balancing were confirmed throughout the full range of motion. Patellar tracking was excellent. The knee was copiously irrigated periodically throughout the procedure. The real implants were cemented into position. Excess cement was carefully removed. The wound was closed in layers with interrupted #1 Vicryl suture, 2-0 strata fix suture, 0 strata fix suture, 2-0 strata fix suture. Steri-Strips placed on the skin with the knee flexed. Sterile bulky dressing applied. The patient was brought to the recovery room in stable condition. There were no complications. Physician optometrist assistant, Nissa Espino PA-C, required for surgery; including patient positioning, draping, tissue retraction, maintaining instrument position, cement removal, wound closure, and dressing placement. Implants Conformis Custom total knee arthroplasty. Cemented. Cruciate retaining. 6B insert. Estimated Blood Loss 50 Drains No Complications No immediate complications Condition Stable Disposition PACU [facility] Billing Surgery - Charge Forward: Surgery Billing
--- NOTE | 2023-06-14 13:30 | ADMGEN ---
This patient, Ghanshyam Ingram, was admitted to Medical Room 258-01. Patient/family oriented to hospital policies and general routines including ID bracelet, bed and alarms, visiting hours, pain management, procedures, bathroom and other care routines, personal items, smoking policy, room service/diet, and visiting hours. Information on how to activate the Rapid Response Team has been discussed. Patient/Family are encouraged to report perceived risks to care and to ask questions if they do not understand what they are told or what they should do.
[2023-06-14] MEDS: SODIUM CHLORIDE 0.9% IV 1,000 ML 125 ML IV CONT (13:51)
[2023-06-14] MEDS: oxyCODONE/ACETAMINOPHEN (*CRX) 5-325 MG TABLET 1 TABLET PO (14:18)
[2023-06-14] MEDS: ONDANSETRON INJ 4 MG/2 ML VIAL IV PUSH (16:40)
[2023-06-14 17:08] LABS: Glucose Point of Care 137 mg/dl (65-105)
[2023-06-14] MEDS: FINASTERIDE 5 MG TABLET PO (20:29)
[2023-06-14] MEDS: predniSONE 10 MG TABLET PO (20:29)
[2023-06-14] MEDS: ASPIRIN 81 MG ENTERIC TABLET PO (20:30)
[2023-06-14] MEDS: FAMOTIDINE 20 MG TABLET PO (20:30)
[2023-06-14] MEDS: traMADol HCL (*CRX) 50 MG TABLET PO (20:53)
[2023-06-14] MEDS: oxyCODONE/ACETAMINOPHEN (*CRX) 10-325 MG TABLET 1 TAB PO (22:26)
[2023-06-14] MEDS: SENNA/DOCUSATE SODIUM TABLET 2 TAB PO (23:19)
[2023-06-15] MEDS: ceFAZolin 2 GM/D5W 50 ML 2 GM/50 ML BAG IVPB ×2 (01:11→09:49)
[2023-06-15 04:06] VITALS: BP 134/77; PULSE 70; RESP 16; TEMP 36.5; O2SAT 99
[2023-06-15 04:57] LABS: Basophils Percent Auto 0.1 % (0.2-1.2); Hemoglobin 12.9 g/dL (14.0-18.0); Immature Granulocyte Absolute 0.04 K/mm3 (0.00-0.031); Immature Granulocyte Percent A 0.4 % (0-0.5); Lymphocytes Absolute Auto 0.55 K/mm3 (0.9-3.2); Lymphocytes Percent Auto 5.1 % (18.3-44.2); Mean Corpuscular HGB Conc 33.1 g/dl (32-36); Mean Corpuscular Hemoglobin 32.3 pg (26-34); Mean Corpuscular Volume 97.5 fl (80-100); Mean Platelet Volume 10.5 fl (7.4-10.4); Monocytes Absolute Auto 0.8 K/mm3 (0.1-0.6); Monocytes Percent Auto 7.2 % (2.6-8.5); Neutrophils Absolute Auto 9.4 K/mm3 (1.3-6.7); Neutrophils Percent Auto 87.2 % (45.5-73.1); Platelet Count Result 177 k/mm3 (150-375); Red Cell Distribution Width 12.5 % (11.5-14.5); White Blood Count 10.7 K/mm3 (4.5-10.0)
[2023-06-15 05:07] LABS: Anion Gap 5 mmol/L (4-12); Blood Urea Nitrogen 19 mg/dL (9-20); Calcium 8.2 mg/dL (8.4-10.2); Carbon Dioxide 23 mmol/L (22-30); Chloride 105 mmol/L (98-107); Estimated CRCL calculation 53 ml/min; Estimated Glomerular Filt Rate > 60; Glucose 140 mg/dL (65-110); Potassium 4.4 mmol/L (3.4-5.0); Sodium 133 mmol/L (137-145)
[2023-06-15 05:37] VITALS: O2SAT 93
[2023-06-15] MEDS: oxyCODONE/ACETAMINOPHEN (*CRX) 10-325 MG TABLET 1 TAB PO (06:51)
--- NOTE | 2023-06-15 08:41 | PM.DS ---
DS: Admitting Diagnosis Discharge Date 06/15/23 Admitting Diagnosis Knee arthtritis. DS: Discharge Diagnosis Discharge Diagnosis (1) Status post total right knee replacement: Code(s): Z96.651 - Presence of right artificial knee joint Status: Acute Assessment and Plan: Postop day 1: Right total knee arthroplasty. Patient tolerated procedure well. No complications. Pain manageable with pain medication. No numbness or tingling. We had a lengthy discussion regarding postoperative wound care, limitations, expectations, and exercises. Patient shows good understanding. He has had initial physical therapy and is tolerating it well. DVT prophylaxis: 81 mg baby aspirin b.i.d. for 14 days. Pain medication: Percocet. Prednisone. Meloxicam. Patient has followup appointment with Dr. Kevin in 3 weeks. DS: Summary Hospital Course Reason for hospitalization: Total knee arthroplasty Hospital Course: Patient tolerated procedure well. Has had initial PT/OT. No complications. Pain well managed. Status at Discharge Functional status at discharge: uses cane/walker Overall status at discharge: patient is progressing back to baseline Time Spent with Patient Time attestation: Total time spent providing and/or coordinating discharge services: Exam Narrative: Normal weight Male. Resting comfortably in chair. No acute distress. A&O x3. Wearing compression socks bilaterally. Dressing intact with no drainage. Moderate swelling. Small area of ecchymosis. No erythema. No hematoma. Good early range of motion. Calf nontender. Neurologic status intact. No varicosities. Distal pulses palpable. DS: Data Data Completed and Pending Labs on day of discharge: Labs from last 24 hours 06/15/23 06/14/23 06/14/23 04:33 16:59 08:46 WBC 10.7 H RBC 4.00 L Hgb 12.9 L Hct 39.0 L MCV 97.5 MCH 32.3 MCHC 33.1 RDW 12.5 Plt Count 177 MPV 10.5 H Immature Gran % (Auto) 0.4 Neut % (Auto) 87.2 H Lymph % (Auto) 5.1 L Starr % (Auto) 7.2 Eos % (Auto) 0.0 Baso % (Auto) 0.1 L Lymph # (Auto) 0.55 L Starr # (Auto) 0.8 H Eos # (Auto) 0.0 Baso # (Auto) 0.0 Abs Immat Gran (auto) 0.04 H Absolute Neuts (auto) 9.4 H Absolute Nucleated RBC 0.000 Nucleated RBC % 0.0 Sodium 133 L Potassium 4.4 Chloride 105 Carbon Dioxide 23 Anion Gap 5 BUN 19 Creatinine 1.00 Estim Creat Clear Calc 53 Estimated GFR > 60 Glucose 140 H POC Capillary Glucose 137 H Calcium 8.2 L Blood Type B Positive Antibody Screen Negative Discharge Plan Discharge Patient Disposition: Home, Self-Care Discharge Instructions: see green instruction sheets Stand Alone Forms: General Discharge Instructions Follow-up/Referrals: Nissa Espino PA [Physician Needle Punch Machine Operator] - Discharge Medications: New aspirin 81 mg tablet,delayed release (DR/EC) 81 mg PO BID 14 Days Qty: 28 0RF oxycodone-acetaminophen 5-325 mg tablet 1 - 2 tablet PO Q4-6H MDD 6 PRN (Reason: pain) Qty: 30 0RF Continued omeprazole 20 mg capsule,delayed release(DR/EC) 20 mg PO DAILY cholecalciferol (vitamin D3) 50 mcg (2,000 unit) tablet 50 mcg PO DAILY meloxicam 7.5 mg tablet 7.5 mg PO DAILY prednisone 10 mg tablet 10 mg PO HS Rx Instructions: PT TAKES 10MG, BUT 1/2 TAB IF PAIN/STIFFNESS ALLOWS (5MG) finasteride 5 mg tablet 5 mg PO DAILY Qty: 30 0RF multivitamin Tablet 1 tablet PO DAILY tramadol 50 mg tablet 50 mg PO TID PRN (Reason: Pain) acetaminophen 500 mg Capsule 1,000 mg PO Q6H PRN (Reason: Pain) guar gum 1 gram Tablet,Chewable 1 g PO TID ibandronate 150 mg tablet 150 mg PO MONTHLY
[2023-06-15] MEDS: SENNA/DOCUSATE SODIUM TABLET 2 TAB PO (09:45)
[2023-06-15] MEDS: FAMOTIDINE 20 MG TABLET PO (09:45)
[2023-06-15] MEDS: MELOXICAM 7.5 MG TABLET PO (09:45)
[2023-06-15] MEDS: ASPIRIN 81 MG ENTERIC TABLET PO (09:45)
[2023-06-15] MEDS: PANTOPRAZOLE 40 MG TABLET PO (09:46)
[2023-06-15] MEDS: polyethylene glycoL 3350 17 GM POWD.PACK PO (09:47)
== END 2023-06-15 10:48 | disposition home or self-care (01) ==
LOC: ANHSURGERY 12:19 → ANH2MED 13:33
PROVIDERS: Physician Assistant Surgical; PCP Family Medicine; Visit Provider Orthopaedic Surgery
PROC: (CPT 27447; principal; 2023-06-14 10:00)
DX: M17.11 Unilateral primary osteoarthritis, right knee (principal); G89.18 Other acute postprocedural pain; N40.0 Benign prostatic hyperplasia without lower urinary tract symptoms; K76.0 Fatty (change of) liver, not elsewhere classified; M06.9 Rheumatoid arthritis, unspecified
CPT/HCPCS: 27447; 64447; 36415; 73560; 80048; 80307; 82040; 82948; 83036; 85025; 85610; 85730; 86850; 86900; 86901; 87641; 97110; 97161; 97165; 97530; 97535; A9270; C1713; C1776; J0171; J0690; J1100; J1885; J2250; J2270; J2405; J2704; J2795; J3010; J7030; J7120; J7512

== ENCOUNTER 2023-08-01 08:02 | Outpatient (CLI) | payer MEDICARE, SELFPAY ==
--- NOTE | ~2023-08-01 | XR_ITS ---
EXAMINATION: XR knee RT 3V DATE: 08/01/2023 08:18 INDICATION: Aftercare following joint replacement surgery. TECHNIQUE: 3 views of right knee including standing views were obtained. COMPARISON: Right knee radiographs 12/01/2022, 06/14/2023 FINDINGS: There is a total right knee arthroplasty without patellar resurfacing in near-anatomic alig nment. There is a periprosthetic fracture of medial tibial condyle in near-anatomic alignment. There are osteophytes of the patella. No knee joint effusion. IMPRESSION: 1. Periprosthetic fracture of medial tibial condyle in near-anatomic alignment. Reviewed, dictated and finalized at location A.
== END 2023-08-01 08:03 | disposition home or self-care (01) ==
PROVIDERS: PCP Family Medicine; Visit Provider Orthopaedic Surgery
DX: Z47.1 Aftercare following joint replacement surgery (principal)
CPT/HCPCS: 73562

== ENCOUNTER 2023-08-08 08:41 | Emergency (ER) | payer MEDICARE, SELFPAY ==
--- NOTE | ~2023-08-08 | XR_ITS ---
EXAMINATION: XR hand LT min 3V DATE: 08/08/2023 09:48 INDICATION: Left thumb injury. TECHNIQUE: 3 views of left hand were obtained. COMPARISON: None. FINDINGS: Bone alignment is normal. No fracture. There is severe osteoarthritis of first carpometacar pal joint and mild osteoarthritis of first and second metacarpophalangeal joints and some of the inte rphalangeal joints. There is a laceration of the thumb. No radiopaque foreign body. IMPRESSION: 1. No fracture or radiopaque foreign body. 2. Polyarticular osteoarthritis. Reviewed, dictated and finalized at location A.
[2023-08-08 08:46] VITALS: BP 129/95; PULSE 82; RESP 18; TEMP 36.6; O2SAT 100
--- NOTE | 2023-08-08 09:49 | ED.GENADULT ---
HPI - General Adult General Chief complaint: Wound/Laceration Stated complaint: LACERATION TO LEFT THUMB Time Seen by Provider: 08/08/23 08:59 History of Present Illness HPI narrative: Ghanshyam Ingram is a 78 y/o male who presents with reports of using a miter saw and he believes that a piece of wood back fired and he cut open his left thumb yesterday at around 1800. Bleeding controlled at this time Related Data Home Medications Medication Instructions Recorded Confirmed cholecalciferol (vitamin D3) 50 50 mcg PO DAILY 07/18/21 08/01/23 mcg (2,000 unit) tablet omeprazole 20 mg capsule,delayed 20 mg PO DAILY 07/18/21 08/01/23 release multivitamin 1 tablet PO DAILY 10/20/21 08/01/23 ibandronate 150 mg tablet 150 mg PO MONTHLY 03/03/22 08/01/23 acetaminophen 500 mg capsule 1,000 mg PO Q6H PRN Pain 05/21/23 08/01/23 guar gum 1 gram chewable tablet 1 g PO TID 05/21/23 08/01/23 meloxicam 7.5 mg tablet 7.5 mg PO DAILY 05/21/23 08/01/23 tramadol 50 mg tablet 50 mg PO TID PRN Pain 05/21/23 08/01/23 Allergies Allergy/AdvReac Type Severity Reaction Status Date / Time Penicillins Allergy Mild Unknown Verified 08/08/23 08:51 Pmbogga-FTO-WpH Reductase AdvReac Severe Muscle Pain Verified 08/08/23 08:51 Inhibitor methotrexate AdvReac Intermediate Hives Verified 08/08/23 08:51 hydroxychloroquine AdvReac Mild Other Verified 08/08/23 08:51 tamsulosin [From Flomax] AdvReac SEXUAL Verified 08/08/23 08:51 PROBLEM Review of Systems Review of Systems: All systems reviewed & are unremarkable except as noted in HPI and below PMFSH Past Medical History Medical History Abdominal hernia Arthritis BMI 23.0-23.9, adult BMI 24.0-24.9, adult BPH (benign prostatic hyperplasia) Elevated liver enzymes Elevated PSA IBS (irritable bowel syndrome) Kidney stones NAFLD (nonalcoholic fatty liver disease) Osteopenia Rheumatoid arthritis Ureterolithiasis Surgical History Surgical History History of cholecystectomy History of hand surgery History of hernia repair Family History Family History Mother Hypertension Congestive heart failure Mother No problems noted. Father Diabetes mellitus Social History Social History Smoking status: Never smoker Second hand tobacco smoke exposure: No Alcohol intake: never Substance use: never Substance use type: does not use Do You Feel Safe in your Home?: Yes Lack of Transportation: No Lack of Food: Never True Current Housing: I Have Housing Concerned About Future Housing: No Difficulty Paying Gas/Electric Bills: No Difficulty Paying for Meds: No Currently Unemployed: No Education: Trade/Vocational Certificate Difficulty w/ Childcare or Family Care: No Living arrangements: with family Additional living arrangements comments: Spiritual care concerns: No Exam Narrative: GENERAL: Well-appearing, well-nourished, and in no acute distress. HEAD: Normocephalic, atraumatic. EYES: PERRLA and EOMI. ENT: Nares clear, no rhinorrhea or epistaxis. Mucous membranes moist. Oropharynx without tonsillar hypertrophy exudate or other lesions. Bilateral TMs pearly valencia non bulging NECK: Supple. No adenopathy or masses. No carotid bruits or JVD CHEST: Clear to auscultation. No respiratory distress. No wheezes rales or rhonchi HEART: Regular rate and rhythm. No murmur heard. Normal peripheral pulses. ABDOMEN: Soft, nontender, nondistended, normal active bowel sounds. EXTREMITIES: Normal range of motion. No edema - Left thumb jagged laceration to his thumb SKIN: Warm, dry, no rash. NEURO: No focal deficits. Alert and oriented x3. PSYCH: Normal mood and affect. Course Vital Signs Vital signs: Vital Signs Temperature 36.6 C 08/08/23
== END 2023-08-08 11:52 | disposition home or self-care (01) ==
PROVIDERS: Emergency Provider Nurse Practitioner Family; PCP Family Medicine
DX: S61.012A Laceration without foreign body of left thumb without damage to nail, initial encounter (principal); W45.8XXA Other foreign body or object entering through skin, initial encounter; M06.9 Rheumatoid arthritis, unspecified
CPT/HCPCS: 12001; 73130; 99283

== ENCOUNTER 2023-09-11 10:02 | Outpatient (CLI) | payer MEDICARE, SELFPAY ==
[2023-09-11 10:28] LABS: Hematocrit 46.3 % (42.0-52.0); Hemoglobin 15.4 g/dL (14.0-18.0); Mean Corpuscular HGB Conc 33.3 g/dl (32-36); Mean Corpuscular Hemoglobin 32.4 pg (26-34); Mean Corpuscular Volume 97.5 fl (80-100); Mean Platelet Volume 9.9 fl (7.4-10.4); Platelet Count Result 169 k/mm3 (150-375); Red Blood Count 4.75 M/mm3 (4.6-6.20); Red Cell Distribution Width 12.7 % (11.5-14.5); White Blood Count 5.8 K/mm3 (4.5-10.0)
[2023-09-11 10:39] LABS: Prothrombin Time 13.3 Seconds (11.1-14.7)
[2023-09-11 10:41] LABS: Alanine Aminotransferase 15 U/L (6-50); Albumin Level 4.4 g/dL (3.5-5.1); Alkaline Phosphatase 58 U/L (38-126); Anion Gap 9 mmol/L (4-12); Aspartate Amino Transferase 20 U/L (17-59); Bilirubin,Total 1.6 mg/dL (0.2-1.3); Blood Urea Nitrogen 18 mg/dL (9-20); Carbon Dioxide 28 mmol/L (22-30); Chloride 101 mmol/L (98-107); Cholesterol 193 mg/dL (0-200); Estimated Glomerular Filt Rate > 60; Glucose 93 mg/dL (65-110); HDL Direct 34 mg/dL; Potassium 4.8 mmol/L (3.4-5.0); Sodium 138 mmol/L (137-145); Triglycerides 162 mg/dL (<150)
[2023-09-11 10:52] LABS: LDL Cholesterol Direct 115 mg/dL
[2023-09-11 12:00] LABS: Hepatitis B Surface Antigen Negative (Negative)
[2023-09-11 12:05] LABS: HAV RESULT Negative (Negative); Hepatitis B Core IgM Result Negative (Negative)
[2023-09-11 12:17] LABS: Hepatitis C Virus Antibody Negative (Negative)
== END 2023-09-11 10:03 | disposition home or self-care (01) ==
LOC: ANHLAB 10:03
PROVIDERS: PCP Family Medicine; Visit Provider Nurse Practitioner
DX: K76.0 Fatty (change of) liver, not elsewhere classified (principal); R79.89 Other specified abnormal findings of blood chemistry; R10.32 Left lower quadrant pain
CPT/HCPCS: 36415; 80048; 80061; 80074; 80076; 82104; 85027; 85610

== ENCOUNTER 2023-10-23 10:45 | Outpatient (CLI) | payer MEDICARE, SELFPAY ==
--- NOTE | ~2023-10-23 | XR_ITS ---
XR abdomen/kub 1V Ordering provider: Reid Onofre MD History: . BPH. FOLLOW UP TO STONES . Comparison: October 23, 2022 FINDINGS: BOWEL: Dextroscoliosis. Nonobstructive bowel gas pattern. Degenerative changes of the spine. ORGANOMEGALY: None. Status post cholecystectomy. SIGNIFICANT PATHOLOGIC CALCIFICATIONS: None. Calcification seen in the pelvis are most likely phleb olith's. OTHER: No free air is seen under the diaphragm. IMPRESSION: NO ACUTE ABDOMINAL FINDINGS. No definite renal stones. Reviewed, dictated and finalized at location A.
== END 2023-10-23 10:46 | disposition home or self-care (01) ==
PROVIDERS: PCP Family Medicine; Visit Provider Urology
DX: N40.1 Benign prostatic hyperplasia with lower urinary tract symptoms (principal)
CPT/HCPCS: 74018

== ENCOUNTER 2024-05-08 11:03 | Outpatient (CLI) | payer MEDICARE, SELFPAY ==
--- NOTE | ~2024-05-08 | XR_ITS ---
Lumbosacral Spine: AP and lateral views Clinical History: Pain Findings: There is mild dextroscoliosis. There is no fracture or subluxation of lumbar spine. There i s moderate compression deformity of T10, and mild compression deformity of T12, likely chronic. There is severe facet arthropathy from L3 through S1. There is severe degenerative disc narrowing at L3-L4 , L4-L5. The sacroiliac joints are normally outlined. 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 Compression fractures of T10 and T12, likely chronic. Reviewed, dictated and finalized at location . 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 Compression fractures of T10 and T12, likely chronic.
--- NOTE | ~2024-05-08 | XR_ITS ---
XR hip RT min 2V 05/08/2024 11:21 Indication: Right hip pain Procedure: 2 views right hip Comparison: No prior studies for comparison. Findings: Mild osteoarthritis the right hip. No fracture, subluxation or dislocation. There are surgi jb changes in the inguinal region. There is atherosclerosis. Impression: 1: Mild osteoarthritis of the right hip. Reviewed, dictated and finalized at location A. Impression: 1: Mild osteoarthritis of the right hip.
--- OUTSIDE RECORDS SUMMARY | 2024-05-08 11:57 | XMS_ITS | Continuity of Care Document ---
Author Organization [facility] Address [address] [place] [address] Phone Care Team Providers Care Government Instructor Name Role Phone Jules Ramos MD Unavailable Unavailable Allergies, Adverse Reactions, Alerts Substance Reaction Status Criticality ranitidine Active No Information PENICILLIN Active No Information Medications Medication Instructions Dosage Effective Dates (start - stop) Status Comments prednisone 5 mg tablet take 1 tablet by oral route every day 5 MG - Active meloxicam 7.5 mg tablet take 1 tablet by oral route every day as needed 7.5 MG - Active cholestyramine (with sugar) 4 gram oral powder take 1 scoop by oral route 2 times every day dissolved in 2 to 6 ounces of water or noncarbonated beverage 4 G - Active Vitamin D3 5,000 unit tablet take 1 capsule by oral route every day 1 capsule - Active omeprazole 20 mg capsule,delayed release take 1 capsule by oral route every day 30 minutes to 1 hour before a meal 20 MG - Active Advance Directives Directive Yes / No Effective Date File Name No Information Encounters Encounter Description Practice Location Reason(s) For Visit Diagnoses Date Provider Providers Copied on Encounter [facility], [address], [place], [place], [id number] , tel: [phone] [facility] Abdominal pain, unspecified abdominal locationAbdominal adhesionsH/O adenomatous polyp of colon 7 Richard Vicente. [address] [place] [address], [id number] , [place]. tel: [phone] Referring Provider: Jules Ramos, [address] [place] [address], [id number] . tel:[phone] Family History Family Member Type Diagnosis Age At Onset Problem (finding) No family history of Cr ohn's disease Problem (finding) No family history of Ca ncer, pancreas Problem (finding) No family history of Ce liac disease Problem (finding) No family history of Ca ncer, gastric Problem (finding) No family history of Ca ncer, esophageal Problem (finding) No family history of Ca ncer, colon Problem (finding) No family history of Ul cerative colitis Payers Payer name Insurance type Covered democrat ID Authoriza tion(s) [facility] MDCR COMPLETE HMO [id number] Social History Type Description Quantity Date Captured Comments Alcohol Use Details Unknown Caffeine Use Details Unknown Tobacco Use Status No Information Smoking Status Never smoker Sex Male Vital Signs Date / Time: Height Weight BMI Pulse Rate Blood Pressure Temperature Respiratory Rate Body Surface Area Head Circumference Head Circ. Percentile Wt./Danish. Percentile BMI percentile Pulse Ox Inhaled Ox 9:26 AM 69.00 in 74.843 kg (165.00 lbs) 24.3 7 kg/m eter (2) 70 /min 120/70 mm[Hg] Chief Complaint And Reason For Visit No Information Reason For Referral Reason For Referral No Information History Of Present Illness Encounter Date Complaint History Of Prese nt Illness No Information Functional Status Date Functional Assessmen t No Information Medications Administered Medication Instructions Dosage Effective Dates (start - stop) Status Comments No Drug Therapy Prescribed Instructions Date Instruction Additional Infor mation No Information Assessments Type Assessment Date No Information Patient Care Teams Name Effective Dates (start - stop) Status Members No Information
--- OUTSIDE RECORDS SUMMARY | 2024-05-08 11:57 | XMS_ITS | Encounter Summary ---
Author Organization [facility] Address [address] [place] [address] Care Team Providers Care Architect Internship Name Role Phone José Wang MD Primary Care Provider [phone] Charissa Veras MD Primary Care Provider [phone] Aiden Aguirre MD Unavailable Unavailable Charissa Veras MD Unavailable [phone] Charissa Veras MD Unavailable [phone] [facility] Un available Encounter Details Date Type Department Care Team (Late st Contact Info) Description 06/18/2012 [facility]NAL [facility] José Medrano MD No information Social History Tobacco Use Types Packs/Day Years Used Date Smoking Tobacco: Never Alcohol Use Standard Drinks/Week Comments No 0 (1 standard drink = 0.6 oz pur e alcohol) Sex and Gender Information Value Date Recorded Sex Assigned at Not on file Gender Identity Not on file Sexual Orientation Not on file documented as of this encounter Plan of Treatment Not on file documented as of this encounter Visit Diagnoses Not on filedocumented in this encounter Care Teams Architect Internship Relationship Specialty Start Date End Date José Wang MD PCP - General 06/08/08 05/17/15 Charissa Veras MD PCP - General Family Medicine 05/18/15 08/31/22 Charissa Veras MD [address] [facility] [address] [place] [address] PCP - Attributed-[facility] 06/07/1701/20 Charissa Veras MD [address] [facility] [address] [place] [address] PCP - Attributed-[facility] 03/08/21 PcpHuseyin - PCP - General 09/01/22 Aiden Aguirre MD [facility] 02/23/17 documented as of this encounter
--- OUTSIDE RECORDS SUMMARY | 2024-05-08 11:57 | XMS_ITS | Continuity of Care Document ---
Author Organization Formerly [facility] Address [address] [place] [address] Phone Care Team Providers Care Tie Puller Name Role Phone Jeffers OD, Moo Unavailable Unavailable Advance Directives Directive Yes / No Effective Date File Name No Information Encounters Encounter Description Practice Location Reason(s) For Visit Diagnoses Date Provider Providers Copied on Encounter Formerly [facility], [address], [place], [place], [id number], [place] tel:[phone] [facility] [place] No Information [phone] Jeffers OD Moo. [address] , [address], [place], [address], [place]. tel:[phone] Family History Family Member Type Diagnosis Age At Onset No Information Payers Payer name Insurance type Covered democrat ID Authoriza tion(s) No Information Social History Type Description Quantity Date Captured Comments Sex Male Smoking Status No Information Chief Complaint And Reason For Visit No Information Reason For Referral Reason For Referral No Information History Of Present Illness Encounter Date Complaint History Of Prese nt Illness No Information Functional Status Date Functional Assessmen t No Information Instructions Date Instruction Additional Infor mation No Information Assessments Type Assessment Date No Information Patient Care Teams Name Effective Dates (start - stop) Status Members No Information
--- OUTSIDE RECORDS SUMMARY | 2024-05-08 11:57 | XMS_ITS | Clinical Summary ---
Author Organization [facility] Address [address] [facility] [place] [address] Care Team Providers Care Outsole Cementer Machine Name Role Phone Aiden Aguirre MD Unavailable Unavailable Pcp, [facility] Primary Care Provider Un available Source Comments [facility],non-owned Affiliates and Associated Physician Practices is amultiple site organization consisting of ambulatory clinics and hospital sitesin [place], [place], [place] and [place]. This disclosure is being madepursuant to the Care Everywhere program and may not contain all information available regarding this patient. Last updated 17.[facility] Allergies Active Allergy Reactions Criticality Noted Date Comments Tamsulosin Low 10/22/2012 Ejaculation issues Hmg-Coa-R Inhibitors Myalgias High 12/27/2009 statins Penicillins Rash Low 01/01/2012 Ranitidine Diarrhea Low 12/28/2008 Medications * Be aware that medications may not be up to date on this document. Alwaysverify current medications with the patient. Medication Sig Dispensed Refills Start Date End Date Status omeprazole (PRILOSEC) 20 MG capsuleIndications: Esophageal reflux Take 1 Cap by mouth daily before breakfast. 30 Cap 5 08/11/2010 Active predniSONE (DELTASONE) 5 MG tablet Take 5-10 mg by mouth once daily 06/17/2018 Active cetirizine (ZYRTEC) 10 MG tablet Take 10 mg by mouth once daily as needed for Allergies Active Multiple Vitamins-Minerals (CENTRUM MEN PO) 06/20/2019 Active PREVALITE 4 GM/DOSE powderIndications:E levated cholesterol,Post-ch olecystectomy syndrome TAKE 4 G BY MOUTH 2 TIMES DAILY REASONS: CHOLESTEROL AND GI ISSUES AFTER GALLBLADDER SURGERY 693 g 3 06/18/2020 Active Additional Information Patient not taking.Reported on 04/22/2021 meloxicam (MOBIC) 15 MG tabletIndications:R heumatoid Arthritis Take 7.5 mg by mouth once daily Reasons: Rheumatoid Arthritis Active vitamin D3 (D--SRINATH) 10 MCG (400 UNITS)/ML solution Active traMADol-acetaminop hen (ULTRACET) 37.5-325 MG tablet Take 1 tablet by mouth every 6 hours as needed for Pain Active ibandronate (BONIVA) 150 MG tablet Take 150 mg by mouth every 30 days Active HYDROcodone-acetami nophen (NORCO) 5-325 MG tablet Take 1 (one) tablet by mouth every 6 hours as needed for Pain 12 tablet 04/26/2021 Active Active Problems Problem Noted Date Diagnosed Date Senile osteoporosis 03/25/2019 Seronegative rheumatoid arthritis 07/31/2018 Overview (03/15/2020): 08/04/19 Charissa Veras MD Family Medicine Follows with Dr. 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 Has not seen uro in years. Elevated cholesterol 06/08/2008 Overview (07/31/2018): Hx of statin intolerance. Had been on cholestyramine in the past PMR (polymyalgia rheumatica) 06/08/2008 Overview (03/15/2020): 08/04/19 Charissa Veras MD Family Medicine Follows with Dr. Aguirre Resolved Problems Problem Noted Date Diagnosed Date Resolved Date Osteopenia, senile 07/31/2018 0 Immunosuppressed status 12/15/201507/07 Osteoporosis, senile 07/03/2009 019 Overview (07/31/2018): [facility]UL [facility] 07/01/2009 Neck -3.0; spine -3.0 [facility]AN-PAUL [facility] 06/06/2011 Neck -3.0; total -2.9; spine -2.4 Encounters Date Type Department Care Team Description 03/12/2024 10:22 AM UROLOGY PHYSICIAN ASSISTANT - 03/12/2024 11:59 PM UROLOGY PHYSICIAN ASSISTANT Hospital Encounter [facility] Health Imaging Services - Radiology [address] [place] [address] Discharge Disposition: Home or Self Care from Last 3 Months Immunizations Name Administration Dates Next Due Covid Pfizer primary monoval ent 12+ yr 0.3mL Purple cap 05/05/2020,04/16/2020 PNEUMOCOCCAL PPSV23 07/31/2018 Pneumococcal Pcv13 Conj 05/20/2015 TDAP (7yrs+) 08/07/2019 ZOSTER VACCINE, LIVE 10/15/2013 Zoster Hzv Vacc Recombinant Inj Im 02/22/2019, Family History Medical History Relation Name Comments Diabetes Father Heart Disease Mother chf Relation Name Status Comments Brother 1 Alive Brother 2 Father Mother Sister 1 Alive Sister 2 Social History Tobacco Use Types Packs/Day Years Used Date Smoking Tobacco: Never Smokeless Tobacco: Never Alcohol Use Standard Drinks/Week Comments No 0 (1 standard drink = 0.6 oz pur e alcohol) PHQ-2 Answer Date Recorded PHQ2 TOTAL SCORE 0 08/04/2020 Sex and Gender Information Value Date Recorded Sex Assigned at Not on file Gender Identity Not on file Sexual Orientation Not on file Last Filed Vital Signs Vital Sign Reading Time Taken Comments Blood Pressure 112/78 04/26/2021 1:15 PM CDT Pulse 71 04/26/2021 1:15 PM CDT Temperature 36.5 C (97.7 F) 04/26/2021 1:01 PM CDT Respiratory Rate 15 04/26/2021 1:15 PM CDT Oxygen Saturation 95% 04/26/2021 1:15 PM CDT Inhaled Oxygen Concentration - - Weight 78 kg (172 lb) 04/26/2021 11:18 AM CDT Height 175.3 cm (5' 9 ) 04/26/2021 11:18 AM CDT Body Mass Index 25.4 04/26/2021 11:18 AM CDT Plan of Treatment Health Maintenance Due Date Last Done Comments Respiratory Syncytial Virus (RSV) Vaccine Pt: or over 60 yrs (1 - 1-dose 75+ series) 2021 COVID-19 VACCINE (4 - season) 2023 02/07/2021, 05/05/2020, 04/16/2020 DEPRESSION SCREENING 02/06/2024 MEDICARE AWV CALENDAR YEAR 2024 08/04/2020, 02/18/2019 INFLUENZA VACCINE (Season Ended) 2024 DTAP/TDAP/TD VACCINES (2 - Td or Tdap) 08/06/2029 08/07/2019 HEPATITIS C SCREENING Completed 04/23/2012 PNEUMOCOCCAL VACCINE 50+ Completed 07/31/2018, 05/06 ZOSTER VACCINE Completed 02/22/2019, 11/0 02/2018, 10/15/2013 BONE DENSITY TESTING Completed 10/10/2023, 03/28/2022, 03/18/2020, Additional history exists HEPATITIS B VACCINE Aged Out No longe r eligible based on patient's age to complete this topic HIB VACCINE Aged Out No longer eligi ble based on patient's age to complete this topic HPV VACCINE Aged Out No longer eligi ble based on patient's age to complete this topic MENINGOCOCCAL (Group B) VACCINE SHARED DECISION-MAKING Aged Out No longer eligible based on patient's age to complete this topic MENINGOCOCCAL GROUPS A/C/Y/W VACCINE Aged Out No longer eligible based on patient's age to complete this topic Goals Goal Patient Goal Type Associated Problems Recent Progress Patient-Stated? Author Exercise 5X per week (30 min per time) Exercise Watson Rogers Note: The [employer] recommends all adults get a minimum of 150 minutes of moderate physical activity a week. This can be completed as 30 minutes of brisk walking on most days of the week. Even 10 minutes of exercise a day can provide benefit and will add up over the week. If able, try to take the stairs instead of the elevator or park father away in the parking lot. Start slow and try to increase your amount of activity over several weeks. Exercise will help to improve your cholesterol readings and blood pressure and to be overall healthier. Procedures Procedure Name Priority Date/Time Associated Diagnosis Comments XR CERVICAL SPINE 2 OR 3VW Routine 03/12/2024 10:41 AM UROLOGY PHYSICIAN ASSISTANT Rheumatoid arthritis, seronegative, multiple sites Right cervical radiculopathy Osteoporosis, unspecified osteoporosis type, unspecified pathological fracture presence High risk medications (not anticoagulants) long-term use Current chronic use of systemic steroids DEXA BONE DENSITY AXIAL SKELETON Routine 10/10/2023 10:25 AM CDT Seronegative rheumatoid arthritis of multiple sites High risk medications (not anticoagulants) long-term use Current chronic use of systemic steroids Osteoporosis, unspecified osteoporosis type, unspecified pathological fracture presence HEPATITIS SCREEN ACUTE Routine 04/23/2012 10:14 AM CDT [place] from Last 3 Months or Most Recently Relevant to Health Maintenance Results * XR CERVICAL SPINE 2 OR 3 VW (03/12/2024 10:41 AM UROLOGY PHYSICIAN ASSISTANT) Anatomical Region Laterality Modality Spine Radiographic Evelyn ging 03/12/2024 1:41 PM UROLOGY PHYSICIAN ASSISTANT Impressions 03/12/2024 2:13 PM UROLOGY PHYSICIAN ASSISTANT IMPRESSION: Bony demineralization and cervical spondylitic changes. Edited by Maddie Murphy on 03/12/2024 1:59 PM > Interpreting Provider: Daljit Reyes MD on 03/12/2024 2:13 PM Narrative 03/12/2024 2:13 PM UROLOGY PHYSICIAN ASSISTANT PROCEDURE: XR CERVICAL SPINE 2 OR 3VW DATE/TIME OF EXAM: 03/12/2024 10:41 AM CLINICAL INFORMATION: None relevant/not provided if blank. Indication: M06.09: Rheumatoid arthritis without rheumatoid factor, multiple sites (HCC) M54.12: Radiculopathy, cervical region M81.0: Age-related osteoporosis without current pathological fracture Z79.899: Other fci (current) drug therapy Z79.52: group home (current) use of systemic steroids Additional History: COMPARISON: None. FINDINGS: Four views of the cervical spine show loss of normal lordosis. Bony demineralization is present. There is minimal retrolisthesis C3 upon C4. There is mild retrolisthesis C4 upon C5. Endplate degenerative changes are present. There is intervertebral disc space narrowing C3-T1. There is no acute fracture or subluxation. Procedure Note Daljit Reyes MD - 03/12/2024 PROCEDURE: XR CERVICAL SPINE 2 OR 3VW DATE/TIME OF EXAM: 03/12/2024 10:41 AM CLINICAL INFORMATION: None relevant/not provided if blank. Indication: M06.09: Rheumatoid arthritis without rheumatoid factor, multiple sites (HCC) M54.12: Radiculopathy, cervical region M81.0: Age-related osteoporosis without current pathological fracture Z79.899: Other exterminator (current) drug therapy Z79.52: remote computer terminal operator (current) use of systemic steroids Additional History: COMPARISON: None. FINDINGS: Four views of the cervical spine show loss of normal lordosis. Bony demineralization is present. There is minimal retrolisthesis C3 upon C4. There is mild retrolisthesis C4 upon C5. Endplate degenerative changesare present. There is intervertebral disc space narrowing C3-T1. There is no acute fracture or subluxation. IMPRESSION: Bony demineralization and cervical spondylitic changes. Edited by Maddie Murphy on 03/12/2024 1:59 PM > Interpreting Provider: Daljit Reyes MD on 03/12/2024 2:13 PM Sivan Bauer APRN-PROCESS SAFETY MANAGEMENT ENGINEER DIAGNOSTIC IMAG ING ORDERABLES * DEXA BONE DENSITY AXIAL SKELETON (10/10/2023 10:25 AM CDT) Anatomical Region Laterality Modality Mammography 10/10/2023 2:03 PM CDT Narrative 10/10/2023 3:21 PM CDT BONE MINERAL DENSITY STUDY INDICATION: Osteoporosis in a male. FINDINGS: The average bone mineral density from L1 to L4 is 1.151 g/cm2. T-score is -0.7 which is the standard deviations (SD) of the mean for the young adult. The Z-score is 0.2 which is the standard deviations for the mean for age matched control. Since 03/18/2020, increased 9.4% bone mineral density. Unfortunately the technologist did not include the most recent prior spine from 03/28/2022 for comparison and change in bone mineral density relative to the current exam. The average bone mineral density of the total right neck of the hip is 0.709 g/cm2. T-score is -2.8. Z-score is -1.2. Since 03/28/2022, decreased 1.2% bone mineral density. 10 year probability of fracture major osteoporotic: 15.7%. Hip: 7.6%. ASSESSMENT: The above findings represent no significant increased risk of fracture through the spine and significant increased risk of fracture through femur. See above. WORLD HEALTH ORGANIZATION DEFINITIONS OSTEOPENIA = -1 TO -2.5 SD BELOW T-SCORE OSTEOPOROSIS = LESS THAN -2.5 SD BELOW T-SCORE 1. No significant- < 1 SD below T score 2. Mild - 1 -2.0 SD below T-score 3. Moderate - 2 -2.5 SD below T-score 4. Significant - > 2.5 SD below T-score Edited by Maddie Murphy on 10/10/2023 2:33 PM > Interpreting Provider: Daljit Reyes MD on 10/10/2023 3:21 PM Procedure Note Daljit Reyes MD - 10/10/2023 BONE MINERAL DENSITY STUDY INDICATION: Osteoporosis in a male. FINDINGS: The average bone mineral density from L1 to L4 is 1.151 g/cm2. T-scoreis -0.7 which is the standard deviations (SD) of the mean for the youngadult. The Z-score is 0.2 which is the standard deviations for the mean forage matched control. Since 03/18/2020, increased 9.4% bone mineral density. Unfortunately the technologist did not include the most recent priorspine from 03/28/2022 for comparison and change in bone mineral densityrelative to the current exam. The average bone mineral density of the total right neck of the hip is 0.709 g/cm2. T-score is -2.8. Z-score is -1.2. Since 03/28/2022,decreased 1.2% bone mineral density. 10 year probability of fracture major osteoporotic: 15.7%. Hip: 7.6%. ASSESSMENT: The above findings represent no significant increased riskof fracture through the spine and significant increased risk of fracture through femur. See above. WORLD HEALTH ORGANIZATION DEFINITIONS OSTEOPENIA = -1 TO -2.5 SD BELOW T-SCORE OSTEOPOROSIS = LESS THAN -2.5 SD BELOW T-SCORE 1. No significant- < 1 SD below T score 2. Mild - 1 -2.0 SD below T-score 3. Moderate - 2 -2.5 SD below T-score 4. Significant - > 2.5 SD below T-score Edited by Maddie Murphy on 10/10/2023 2:33 PM > Interpreting Provider: Daljit Reyes MD on 10/10/2023 3:21 PM Sivan Bauer APRN-PROCESS SAFETY MANAGEMENT ENGINEER DEXA ORDERABLES * HEPATITIS SCREEN ACUTE (04/23/2012 10:14 AM CDT) Hepatitis A Virus Antibody IgM Negative Negative [facility] INSURANCE BILL Hepatitis B Virus Surface Antigen Negative Negative [facility] INSURANCE BILL Hepatitis B Core Virus Antibody IgM Negative Negative [facility] INSURANCE BILL Hepatitis C Virus Antibody 0.1 0.0 - 0.9 s/co ratio [facility] INSURANCE BILL Comment: Negative: < 0.8 Indeterminate 0.8 - 0.9 Positive: > 0.9 . In order to reduce the incidence of a false positive result, the CDC recommends that all s/co ratios between 1.0 and 10.9 be confirmed with additional RIBA or PCR testing. Blood specimen (specimen) BLOOD SPECIMEN / Unknown 04/23/2012 10:14 AM CDT 04/23/2012 1:03 PM CDT Narrative Resulting Agency Comment [facility] [address] [id number] José Wang MD LAB - CHEMISTRY O RDERABLES [facility] INSURANCE BILL from Last 3 Months or Most Recently Relevant to Health Maintenance Care Teams Outsole Cementer Machine Relationship Specialty Start Date End Date PcpHuseyin Depaul - PCP - General 09/01/22 Aiden Aguirre MD Rheumatology 02/23/17
--- OUTSIDE RECORDS SUMMARY | 2024-05-08 11:57 | XMS_ITS | Encounter Summary ---
Author Organization [facility] Address [address] [place] [address] Care Team Providers Care Sewage Reticulation Drafting Officer Name Role Phone José Wang MD Primary Care Provider [phone] Charissa Veras MD Primary Care Provider [phone] Aiden Aguirre MD Unavailable Unavailable Charissa Veras MD Unavailable [phone] Charissa Veras MD Unavailable Pcp, [facility] Primary Care Provider Un available Encounter Details Date Type Department Care Team (Late st Contact Info) Description 03/04/2014 [facility] [place] [address] [facility] [address] [place] [id number] Social History Tobacco Use Types Packs/Day Years [...] on filedocumented in this encounter Care Teams Sewage Reticulation Drafting Officer Relationship Specialty Start Date End Date José Wang MD PCP - General 06/08/08 05/17/15 Charissa Veras MD PCP - General Family Medicine 05/18/15 08/31/22 Charissa Veras MD [address] [facility] [address] [place] [address] PCP - Attributed-[facility] 06/07/1701/20 Charissa Veras MD [address] [facility] [address] [place] [address] PCP - Attributed-[facility] 03/08/21 PcpHuseyin - PCP - General 09/01/22 Aiden Aguirre MD [facility] 02/23/17 documented as of this encounter
== END 2024-05-08 11:04 | disposition home or self-care (01) ==
PROVIDERS: PCP Family Medicine; Visit Provider Nurse Practitioner Adult Health
DX: M47.894 Other spondylosis, thoracic region (principal); S22.070A Wedge compression fracture of T9-T10 vertebra, initial encounter for closed fracture; S22.080A Wedge compression fracture of T11-T12 vertebra, initial encounter for closed fracture; X58.XXXA Exposure to other specified factors, initial encounter; M16.11 Unilateral primary osteoarthritis, right hip
CPT/HCPCS: 72100; 73502

== ENCOUNTER 2024-05-24 08:54 | Outpatient (CLI) | payer MEDICARE, SELFPAY ==
--- NOTE | ~2024-05-24 | MR_ITS ---
MRI of the lumbar spine Clinical History: Compression fracture Technique: Axial T2-weighted images, and sagittal T1-weighted, T2-weighted, and T2 fat-sat images wer e acquired. Findings: No acute fracture. There is minimal grade 1 retrolisthesis of L3 over L4, and of L4 over L5 . No suspicious bone marrow signal abnormality seen. There are mild Modic type reactive marrow signal changes about the L3-L4 and L4-L5 disc spaces due to underlying degenerative disc disease. At L1-L2, there is no disc bulge or herniation. No spinal canal stenosis or definite neural foraminal narrowing. At L2-L3, there is mild to moderate degenerative disc narrowing. There is minimal disc bulge with min imal facet arthropathy. No central canal stenosis. There is mild left neural foraminal narrowing. Rig ht neural foramen preserved. L3-L4, there is advanced degenerative disc narrowing. Disc bulge and facet arthropathy result in lary re spinal canal stenosis/thecal sac compression and severe bilateral neural foraminal compromise, lef t worse than right. At L4-L5, there is advanced degenerative disc narrowing. Disc bulge and severe facet arthropathy resu lt in severe spinal canal stenosis/thecal sac compression. There is severe right neural foraminal com promise, and mild to moderate left neural foraminal contrast. At L5-S1, there is minimal disc bulge with moderate to severe facet arthropathy. No central canal jeronimo nosis. There is moderate right neural foraminal narrowing, and mild left neural foraminal narrowing. Paravertebral soft tissues are unremarkable. Impression: Severe degenerative spondylosis at L3-L4 and L4-L5, as above. Moderate degenerative spondylosis at L2-L3 and L5-S1. Reviewed, dictated and finalized at [facility]. Impression: Severe degenerative spondylosis at L3-L4 and L4-L5, as above. Moderate degenerative spondylosis at L2-L3 and L5-S1.
== END 2024-05-24 08:55 | disposition home or self-care (01) ==
LOC: MICIMG 08:54
PROVIDERS: PCP Family Medicine; Visit Provider Nurse Practitioner Adult Health
DX: S22.000A Wedge compression fracture of unspecified thoracic vertebra, initial encounter for closed fracture (principal); G89.11 Acute pain due to trauma; M47.9 Spondylosis, unspecified; X58.XXXA Exposure to other specified factors, initial encounter; M47.896 Other spondylosis, lumbar region
CPT/HCPCS: 72148

== ENCOUNTER 2024-11-03 08:40 | Outpatient (CLI) | payer MEDICARE, SELFPAY ==
--- NOTE | ~2024-11-03 | XR_ITS ---
EXAMINATION: XR abdomen/kub 1V DATE: 11/03/2024 08:56 INDICATION: Left ureteral stone TECHNIQUE: A supine view of the abdomen on 2 radiographs was obtained. COMPARISON: 10/23/2023. FINDINGS: Cholecystomy clips are present. Small patchy opacities in the lower lungs which represent atelectasis/scarring or infiltrates. Clips project over the pelvis. There are a few less than 1.0 cm calcifications projecting over the pelvis which may represent phleboliths, however, a distal ureteral stone or bladder stone or possible. Small amount of air in nondilated large and small bowel. IMPRESSION: 1. Nonspecific abdomen. 2. There are a few less than 1.0 cm calcifications projecting over the pelvis which may represent phleboliths, however, a distal ureteral stone or bladder stone or possible. Consider a CT of the abdomen and pelvis for further assessment Reviewed, dictated and finalized at location Q. IMPRESSION: 1. Nonspecific abdomen. 2. There are a few less than 1.0 cm calcifications projecting over the pelvis w hich may represent phleboliths, however, a distal ureteral stone or bladder sto ne or possible. Consider a CT of the abdomen and pelvis for further assessment
--- OUTSIDE RECORDS SUMMARY | 2024-11-03 08:53 | XMS_ITS | Encounter Summary ---
Author Organization [facility] Address [address] [place] [address] Care Team Providers Care Diet Therapist Name Role Phone José Wang MD Primary Care Provider [phone] Charissa Veras MD Primary Care Provider [phone] Aiden Aguirre MD Unavailable Unavailable Charissa Veras MD Unavailable [phone] Charissa Veras MD Unavailable [phone] Pcp, [facility] Primary Care Provider Un available Encounter Details Date Type Department Care Team (Late st Contact Info) Description 03/04/2014 [facility] [place] [address] [facility] [address] [place] [id number] Social History Tobacco Use Types Packs/Day Years Used Date Smoking Tobacco: Never Smokeless Tobacco: Never Alcohol Use Standard Drinks/Week Comments No 0 (1 standard drink = 0.6 oz pur e alcohol) Sex and Gender Information Value Date Recorded Sex Assigned at Not on file Legal Sex Male 4:27 AM FRUIT CANNER Gender Identity Not on file Sexual Orientation Not on file documented as of this encounter Plan of Treatment Not on file documented as of this encounter Visit Diagnoses Not on filedocumented in this encounter Care Teams Diet Therapist Relationship Specialty Start Date End Date José Wang MD PCP - General 06/08/08 05/17/15 Charissa Veras MD PCP - General Family Medicine 05/18/15 08/31/22 Charissa Veras MD [address] [facility] [address] [place] [address] PCP - Attributed-[facility] [place] 06/07/1701/20 Charissa Veras MD [address] [facility] [address] [place] [address] PCP - Attributed-[facility] [place] 03/08/21 PcpHuseyin - PCP - General 09/01/22 Aiden Aguirre MD [facility] 02/23/17 documented as of this encounter
--- OUTSIDE RECORDS SUMMARY | 2024-11-03 08:53 | XMS_ITS | Clinical Summary ---
Author Organization [facility] Address [address] [place] [address] Care Team Providers Care Cycle Liaison Name Role Phone Aiden Aguirre MD Unavailable Unavailable Pcp, [facility] Depaul Im-Fm Primary Care Provider Un available Source Comments [facility],non-owned Affiliates and Associated Physician Practices is amultiple site organization consisting of ambulatory clinics and hospital sitesin [place], [place], [place] and [place]. This disclosure is being madepursuant to the Care Everywhere program and may not contain all information available regarding this patient. Last updated 17.[facility] Allergies Active Allergy Reactions Criticality Noted Date Comments Tamsulosin Low 10/22/2012 Ejaculation issues Hmg-Coa-R Inhibitors Myalgias High 12/27/2009 statins Penicillins Rash Low 01/01/2012 Ranitidine Diarrhea Low 12/28/2008 Medications * Be aware that medications may not be up to date on this document. Alwaysverify current medications with the patient. omeprazole (PRILOSEC) 20 MG capsuleIndicati ons:Esophageal reflux Take 1 Cap by mouth daily before breakfast. 30 Cap 5 1 Active predniSONE (DELTASONE) 5 MG tablet Take 5-10 mg by mouth once daily 9 Active cetirizine (ZYRTEC) 10 MG tablet Take 10 mg by mouth once daily as needed for Allergies Active Multiple Vitamins-Minera ls (CENTRUM MEN PO) 0 Active PREVALITE 4 GM/DOSE powderIndicatio ns:Elevated cholesterol,Pos t-cholecystecto my syndrome TAKE 4 G BY MOUTH 2 TIMES DAILY REASONS: CHOLESTEROL AND GI ISSUES AFTER GALLBLADDER SURGERY 693 g 3 1 Active Additional Information Patient not taking.Reported on 04/22/2021 meloxicam (MOBIC) 15 MG tabletIndicatio ns:Rheumatoid Arthritis Take 7.5 mg by mouth once daily Reasons: Rheumatoid Arthritis Active vitamin D3 (D--SRINATH) 10 MCG (400 UNITS)/ML solution Active traMADol-acetam inophen (ULTRACET) 37.5-325 MG tablet Take 1 tablet by mouth every 6 hours as needed for Pain Active ibandronate (BONIVA) 150 MG tablet Take 150 mg by mouth every 30 days Active HYDROcodone-rod taminophen (NORCO) 5-325 MG tablet Take 1 (one) tablet by mouth every 6 hours as needed for Pain 12 tablet 2 Active Active Problems Problem Noted Date Diagnosed [...] 06/06/2011 Neck -3.0; total -2.9; spine -2.4 Immunizations Immunization Administration Dates Next Due CovApprenNet primary monoval ent 12+ yr 0.3mL Purple [...] on file 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 Gender Identity Not on file Sexual Orientation [...] 11:18 AM CDT Height 175.3 cm (5' 9) 04/26/2021 11:18 AM CDT Body Mass Index 25.4 04/26/2021 11:18 AM CDT Plan of Treatment Health Maintenance Due Date Last Done Comments Respiratory Syncytial Virus (RSV) Vaccine Pt: or over 60 yrs (1 - 1-dose 75+ series) 2021 DEPRESSION SCREENING 02/06/2024 MEDICARE AWV CALENDAR YEAR 2024 08/04/2020, 02/18/2019 COVID-19 VACCINE ( season) 2024 02/07/2021, 05/05/2020, 04/16/2020 INFLUENZA VACCINE (#1) 2024 DTAP/TDAP/TD VACCINES (2 - Td or Tdap) 08/06/2029 08/07/2019 HEPATITIS C SCREENING Completed 04/23/2012 PNEUMOCOCCAL VACCINE 50+ Completed 07/31/2018, 05/06 ZOSTER VACCINE Completed 02/22/2019, 02/2018, 10/15/2013 BONE DENSITY TESTING Completed 10/10/2023, [...] per time) Exercise Watson Rogers Note: The [employer] recommends all adults [...] Procedure Name Priority Date/Time Associated Diagnosis Comments DEXA BONE DENSITY AXIAL SKELETON Routine 10/10/2023 10:25 AM CDT Seronegative rheumatoid arthritis of multiple sites High risk medications (not anticoagulants) long-term use Current chronic use of systemic steroids Osteoporosis, unspecified osteoporosis type, unspecified pathological fracture presence HEPATITIS SCREEN ACUTE Routine 04/23/2012 10:14 AM CDT [place]assitude from Last 3 Months or Most Recently Relevant to Health Maintenance Results * DEXA BONE DENSITY AXIAL SKELETON (10/10/2023 [...] MD on 10/10/2023 3:21 PM Sivan Bauer BAG LINER-SPOT FACER DEXA ORDERABLES Final R esult * HEPATITIS SCREEN ACUTE (04/23/2012 10:14 AM [...] PM CDT Narrative Resulting Agency Comment [facility] [address] [id number] us José Wang MD LAB - CHEMISTRY ORDERABLE S Final Result [facility] INSURANCE BILL [address] [place] [address] from Last 3 Months or Most Recently Relevant to Health Maintenance Insurance [facility] MANAGED MEDICARE ADV MANAGED MEDICARE ADV [facility] MANAGED MEDICARE ADV Care Teams Cycle Liaison Relationship Specialty Start Date End Date PcpHuseyin Deppriscilla Im-Fm PCP - General 09/01/22 Aiden Aguirre MD Rheumatology 02/23/17
--- OUTSIDE RECORDS SUMMARY | 2024-11-03 08:53 | XMS_ITS | Encounter Summary ---
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 Gender Identity Not on file Sexual Orientation Not on file documented as of this encounter Plan of Treatment Not on file documented as of this encounter Visit Diagnoses Not on filedocumented in this encounter Care Teams Stave Mill Hand Relationship Specialty Start Date End Date Jsoé Wang MD PCP - General 06/08/08 05/17/15 Charissa Veras MD PCP - General Family Medicine 05/18/15 08/31/22 Charissa Veras MD [address] [place] [address] PCP - Attributed-[facility] [place] 06/07/1701/20 Charissa Veras MD [address] [place] [address] PCP - Attributed-[facility] 03/08/21 PcpHuseyin - PCP - General 09/01/22 Aiden Aguirre MD [facility] 02/23/17 documented as of this encounter
== END 2024-11-03 08:41 | disposition home or self-care (01) ==
PROVIDERS: PCP Family Medicine; Visit Provider Urology
DX: M61.48 Other calcification of muscle, other site (principal); N20.1 Calculus of ureter
CPT/HCPCS: 74018

== ENCOUNTER 2025-01-05 09:40 | Outpatient (CLI) | payer MEDICARE, SELFPAY ==
--- NOTE | ~2025-01-05 | CT_ITS ---
EXAMINATION: CT_LELTCWO_CT DATE: 01/05/2025 10:05 INDICATION: Left knee osteoarthritis. Preoperative planning. TECHNIQUE: Computed tomography (CT) of the left lower limb was performed without intravenous contrast. Automated exposure control and iterative reconstruction technique were employed. The dose-length product was 1969.04 mGy-cm. COMPARISON: Left knee radiographs 12/12/2024 FINDINGS: There are changes of bilateral inguinal hernia repairs. There are approximately 6 stones in the bladder measuring up to 7 mm. The prostate is moderately enlarged. There is moderate left hip osteoarthritis. Left knee demonstrates varus angulation. No fracture. There is severe osteoarthritis of medial compartment and mild osteoarthritis of lateral and patellofemoral compartments of the knee. There is a small knee joint effusion. There are widespread arterial calcifications. IMPRESSION: 1. Severe left knee osteoarthritis. 2. Small left knee joint effusion. Reviewed, dictated and finalized at location E. OM PRESSER
[2025-01-05 10:22] LABS: Hematocrit 45.2 % (42.0-52.0); Hemoglobin 14.9 g/dL (14.0-18.0)
--- OUTSIDE RECORDS SUMMARY | 2025-01-05 10:30 | XMS_ITS | Encounter Summary ---
Author Organization [facility] Address [address] [place] [address] Care Team Providers Care Cotton Cleaner Name Role Phone José Wang MD Primary Care Provider [phone] Charissa Veras MD Primary Care Provider [phone] Aiden Aguirre MD Unavailable Unavailable Charissa Veras MD Unavailable [phone] Charissa Veras MD Unavailable [phone] Pcp, [facility] Primary Care Provider Un available Encounter Details Date Type Department Care Team (Late st Contact Info) Description 03/04/2014 [facility] [place] [address] [facility] [address] [place] [id number] Social History Tobacco Use Types Packs/Day Years Used Date Smoking Tobacco: Never Smokeless Tobacco: Never Alcohol Use Standard Drinks/Week Comments No 0 (1 standard drink = 0.6 oz pur e alcohol) Sex and Gender Information Value Date Recorded Sex Assigned at Not on file 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 Gender Identity Not on file Sexual Orientation Not on file documented as of this encounter Plan of Treatment Not on file documented as of this encounter Visit Diagnoses Not on filedocumented in this encounter Care Teams Cotton Cleaner Relationship Specialty Start Date End Date José Wang MD PCP - General 06/08/08 05/17/15 Charissa Veras MD PCP - General Family Medicine 05/18/15 08/31/22 Charissa Veras MD [address] [facility] [address] [place] [address] PCP - Attributed-[facility] [place] 06/07/1701/20 Charissa Veras MD [address] [facility] [address] [place] [address] PCP - Attributed-[facility] [place] 03/08/21 PcpHuseyin - PCP - General 09/01/22 Aiden Aguirre MD [facility] 02/23/17 documented as of this encounter
--- OUTSIDE RECORDS SUMMARY | 2025-01-05 10:30 | XMS_ITS | Encounter Summary ---
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 Gender Identity Not on file Sexual Orientation Not on file documented as of this encounter Plan of Treatment Not on file documented as of this encounter Visit Diagnoses Not on filedocumented in this encounter Care Teams Locomotive Mechanic Apprentice Relationship Specialty Start Date End Date José Wang MD PCP - General 06/08/08 05/17/15 Charissa Veras MD PCP - General Family Medicine 05/18/15 08/31/22 Charissa Veras MD [address] [place] [address] PCP - Attributed-[facility] [place] 06/07/1701/20 Charissa Veras MD [address] [place] [address] PCP - Attributed-[facility] 03/08/21 PcpHuseyin - PCP - General 09/01/22 Aiden Aguirre MD [facility] 02/23/17 documented as of this encounter
--- OUTSIDE RECORDS SUMMARY | 2025-01-05 10:30 | XMS_ITS | Clinical Summary ---
Author Organization [facility] Address [address] [place] [address] Care Team Providers Care Blue Line Trimmer Name Role Phone Aiden Aguirre MD Unavailable Unavailable Pcp, [email or web address] Depaul Im-Fm Primary Care Provider Un available Source Comments [facility],non-owned Affiliates and Associated Physician Practices is amultiple site organization consisting of ambulatory clinics and hospital sitesin [place], [place] and [place]. This disclosure is being madepursuant to the Care Everywhere program and may not contain all information available regarding this patient. 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 Gender Identity Not on file Sexual Orientation [...] per time) Exercise Watson Rogers Note: The [employer] recommends all adults [...] MD on 10/10/2023 3:21 PM Sivan Bauer SANITARY INSPECTOR-DIRECTOR TRADING DEXA ORDERABLES Final R esult * HEPATITIS [...] PM CDT Narrative Resulting Agency Comment [facility] [address] [phone] us José Wang MD LAB - CHEMISTRY ORDERABLE S Final Result [facility] INSURANCE BILL [address] [place] [address] from Last 3 Months or Most Recently Relevant to Health Maintenance Insurance [facility] MANAGED MEDICARE ADV MANAGED MEDICARE ADV [facility] MANAGED MEDICARE ADV Care Teams Blue Line Trimmer Relationship Specialty Start Date End Date PcpHuseyin Deppriscilla Im-Fm PCP - General 09/01/22 Aiden Aguirre MD Rheumatology 02/23/17
[2025-01-05 10:39] LABS: Albumin Level 4.4 g/dL (3.5-5.1); Estimated Glomerular Filt Rate > 60; Glucose 84 mg/dL (65-110)
== END 2025-01-05 09:41 | disposition home or self-care (01) ==
PROVIDERS: PCP Family Medicine; Visit Provider Orthopaedic Surgery
DX: M17.12 Unilateral primary osteoarthritis, left knee (principal); Z01.818 Encounter for other preprocedural examination; E87.1 Hypo-osmolality and hyponatremia; E80.6 Other disorders of bilirubin metabolism
CPT/HCPCS: 36415; 73700; 82040; 82565; 82947; 85014; 85018